=== PATIENT | male | born 1955 | race Caucasian/White ===

== ENCOUNTER → 2019-06-24 16:06 | Outpatient (BNVA) | payer OTHER, SELFPAY | PROVIDERS: Family Provider Family Medicine; Referring Provider Internal Medicine; Visit Provider Specialist | DX: M25.511 Pain in right shoulder (principal) | CPT/HCPCS: 73030 ==

== ENCOUNTER 2020-09-05 21:45 | Emergency (ER) | payer OTHER, SELFPAY ==
--- NOTE | 2020-09-05 21:45 | XRR_ITS ---
PROCEDURE INFORMATION: Exam: XR Chest Exam date and time: 09/05/2020 9:46 PM Age: 64 years old Clinical indication: Pain; Chest pressure; Additional info: Cp TECHNIQUE: Imaging protocol: XR of the chest. Views: 1 view. COMPARISON: CT chest w con* [id number] 03/27/2019 9:54 AM FINDINGS: Lungs: Unremarkable. No consolidation. Pleural spaces: Unremarkable. No pleural effusion. No pneumothorax. Heart/Mediastinum: Unremarkable. No cardiomegaly. Bones/joints: Unremarkable. XR/XR chest 1V portable [id number] IMPRESSION: No acute disease.
--- NOTE | 2020-09-05 21:46 | ECG_ITS ---
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 Measurements Intervals [place] Rate: 69 P: 38 TX: 152 QRS: 17 QRSD: 96 T: 53 QT: 377 QTc: 404 Interpretive Statements SINUS RHYTHM POSSIBLE RIGHT VENTRICULAR CONDUCTION DELAY [RSR (QR) IN V1/V2] Compared to ECG 01/16/2019 21:12:50 No significant changes Electronically Signed On 09-06-2020 15:33:51 CDT by Ventura De Anda M.D. [email or web address].The Mother Listmonroe regional hospitaltripJaneselect [facility].[employer]/store/NU/[id number] f
--- NOTE | 2020-09-05 21:50 | W.ED.CHESTPA ---
HPI - Chest Pain General: Chief Complaint: Chest Pain Stated Complaint: CP Time Seen by Provider: 09/05/20 21:45 Source: patient and EMS Mode of arrival: EMS Limitations: no limitations History of Present Illness: HPI narrative: 64-year-old male states he was outside working started having a sharp chest pain in the center of his chest. He states it started suddenly and lasted 1 to 2 minutes. He states he then went inside and had 2 more episodes. Patient since the pain is resolved. He is given aspirin in route. He denies any radiation of his pain. Denies any nausea with the pain. He denies any worsening improving factors. He has no history of coronary artery disease. Associated symptoms: Deny abdominal pain, dyspnea, fever(s), nausea or vomiting Review of Systems Const: Denies: fever(s), chills, body aches or change in appetite Eyes: Denies: blurry vision or eye discomfort ENMT: Denies: throat pain or dental pain Card: Reports: chest pain Resp: Denies: dyspnea GI: Denies: abdominal pain, nausea, vomiting or diarrhea : Denies: dysuria Musc: Denies: neck pain or back pain Skin/Breast: Denies: rash Neuro: Denies: headache(s) Psych: Denies: depression Jason/Lymph: Denies: easy bruising All/Imm: Denies: urticaria PFSH ED PFSH: Social History Smoking and tobacco status: former smoker Alcohol intake: never Physical Exam Const: COMMON NORMALS: no acute distress, patient oriented x3 and healthy appearing HENMT: COMMON NORMALS: normocephalic and atraumatic HEAD & SCALP: normocephalic and atraumatic Eye: COMMON NORMALS: Equal, round and reactive pupils present and EOMs intact bilaterally PUPIL: Yes Equal, round and reactive pupils present Neck/C-Spine: COMMON NORMALS: full ROM and supple Chest: COMMONS NORMALS: normal inspection of the chest and normal palpation of entire chest wall Resp: COMMON NORMALS: normal respiratory effort, No retractions, No use of accessory muscles and clear to auscultation bilaterally AUSCULTATION: clear to auscultation bilaterally Cardio: COMMON NORMALS: regular rate, regular rhythm and No murmurs present (Cardio) RATE: regular rate RHYTHM: regular rhythm GI: COMMON NORMALS: Normal to inspection, nondistended, normoactive bowel sounds present, Soft to palpation, non-tender and no masses PALPATION: Yes Soft to palpation Extremity: COMMON NORMALS: normal to inspection and full ROM Neuro: COMMON NORMALS: patient oriented x3, moves all extremities and no focal motor deficits Psych: COMMON NORMALS: mental status grossly normal, Normal thought process present and cooperative THOUGHT PROCESS: Normal thought process present Skin: COMMON NORMALS: no rashes or lesions noted and no wounds GENERAL SKIN EXAM: no rashes or lesions noted Course Vital Signs: Vital signs: Vital Signs Temperature 98.4 F 09/05/20 21:57 Pulse Rate 65 09/06/20 00:41 Respiratory Rate 18 09/06/20 00:41 Blood Pressure 114/60 09/06/20 00:41 Pulse Oximetry 96 09/06/20 00:41 MDM - Chest Pain MDM Narrative: Medical decision making narrative: Patient presents with chest pain is atypical in nature. His initial and repeat troponins are negative along with his EKG. He feels much improved and is wanting to go home. I feel he is stable for discharge. He is to follow-up his PCP in 2 to 4 days and I recommend an outpatient stress test. He is return if he has any more pain. He understands and agrees to plan. Lab Data: Labs: Lab Results 09/05/20 09/05/20 09/05/20 Range/Units 22:21 22:21 22:21 WBC 7.5 (4.0-10.0) 10^3/ uL RBC 4.49 (4.1-5.3) 10^6/u L Hgb 13.1 (11.7-16.6) g/dL Hct 40.0 L (42.0-52.0) % MCV 89.1 (80-94) fL MCH 29.2 (28.0-34.0) pg MCHC 32.8 (30.0-36.0) g/dL RDW 12.4 (12.1-15.1) % Plt Count 340 (130-400) 10^3/c mm MPV 9.3 (7.4-10.4) fL Neut % (Auto) 52.5 % Lymph % (Auto) 31.0 % [place] % (Auto) 6.8 % Eos % (Auto) 8.4 % Baso % (Auto) 0.9 % Neut # (Auto) 3.96 (1.8-7.7) 10^3/u L Lymph # (Auto) 2.3 (0.8-4.8) 10^3/u L [place] # (Auto) 0.5 (0.2-0.9) 10^3/u L Eos # (Auto) 0.6 (0.0-0.8) 10^3/u L Baso # (Auto) 0.1 (0.0-0.1) 10^3/u L Nucleated RBC % (a uto) 0 % Nucleated RBCs # 0.0 /100WBC Sodium 141 (136-145) mmol/L Potassium 4.8 (3.5-5.1) mmol/L Chloride 107 (98-107) mmol/L Carbon Dioxide 23 (22-29) mmol/L Anion Gap 15.8 (5-19) BUN 13 (8-23) mg/dL Creatinine 1.2 (0.7-1.2) mg/dL GFR Calculation 60.8 L (90-130) mL/min Glucose 166 H (65-115) mg/dL Calculated Osmolal ity 296 H (285-295) mOsm/k g Calcium 9.1 (8.5-10.5) mg/dL Total Bilirubin 0.2 (0.15-1.2) mg/dL AST 22 (0-40) U/L ALT 22 (0-41) U/L Alkaline Phosphata se 54 (40-130) IU/L Troponin T Baselin e 7 (0-15) ng/L Troponin T 120 Min pamunkey (0-15) ng/L Delta Troponin T (0-10) ABS# Total Protein 6.8 (6.6-8.7) g/dL Albumin 4.0 (3.5-5.2) g/dL Globulin 2.8 (1.3-4.6) g/dL 09/06/20 Range/Units 00:25 WBC (4.0-10.0) 10^3/ uL RBC (4.1-5.3) 10^6/u L Hgb (11.7-16.6) g/dL Hct (42.0-52.0) % MCV (80-94) fL MCH (28.0-34.0) pg MCHC (30.0-36.0) g/dL RDW (12.1-15.1) % Plt Count (130-400) 10^3/c mm MPV (7.4-10.4) fL Neut % (Auto) % Lymph % (Auto) % [place] % (Auto) % Eos % (Auto) % Baso % (Auto) % Neut # (Auto) (1.8-7.7) 10^3/u L Lymph # (Auto) (0.8-4.8) 10^3/u L [place] # (Auto) (0.2-0.9) 10^3/u L Eos # (Auto) (0.0-0.8) 10^3/u L Baso # (Auto) (0.0-0.1) 10^3/u L Nucleated RBC % (a uto) % Nucleated RBCs # /100WBC Sodium (136-145) mmol/L Potassium (3.5-5.1) mmol/L Chloride (98-107) mmol/L Carbon Dioxide (22-29) mmol/L Anion Gap (5-19) BUN (8-23) mg/dL Creatinine (0.7-1.2) mg/dL GFR Calculation (90-130) mL/min Glucose (65-115) mg/dL Calculated Osmolal ity (285-295) mOsm/k g Calcium (8.5-10.5) mg/dL Total Bilirubin (0.15-1.2) mg/dL AST (0-40) U/L ALT (0-41) U/L Alkaline Phosphata se (40-130) IU/L Troponin T Baselin e (0-15) ng/L Troponin T 120 Min pamunkey 8.02 (0-15) ng/L Delta Troponin T 1.02 (0-10) ABS# Total Protein (6.6-8.7) g/dL Albumin (3.5-5.2) g/dL Globulin (1.3-4.6) g/dL Imaging Data^: CXR: Attestation: I personally reviewed and interpreted this imaging study as follows: My impression: no acute abnormality EKG Data^: EKG 1: Attestation: I personally reviewed and interpreted this EKG as follows: EKG interpretation date: 09/05/20 EKG interpretation time: 21:56 Interpretation: nsr hr [address] or t wave abnormalities qrs 96 qtc 395 EKG 2: Attestation: I personally reviewed and interpreted this EKG as follows: EKG interpretation date: 09/05/20 EKG interpretation time: 23:25 Interpretation: nsr hr [address] or t wave abnormalities qrs 97 qtc 392 Discharge Plan Discharge Patient Disposition: Home Clinical Impression: Chest pain Qualifiers: Chest pain type: unspecified Qualified Code(s): R07.9 - Chest pain, unspecified Condition: Stable Prescriptions: No Action glipizide 5 mg tablet 5 mg PO DAILY RF: 0 metformin 500 mg tablet 500 mg PO DAILY RF: 0 losartan 50 mg tablet 50 mg PO DAILY RF: 0 Discharge Orders: Discharge ED (Routine); Ordered 09/06/20 Ordered By: Jesus Mathew Discharge Diet: Advance as tolerated Discharge Activity: Resume usual activity Patient Instructions: Chest Pain (ED) Coding Level of Care Code ED Snout Puller for Chg Fwd Exam Comprehensive
[2020-09-05 21:57] VITALS: BP 105/54; PULSE 65; RESP 16; TEMP 36.9; O2SAT 97; BMI 33.9
[2020-09-05 22:09] VITALS: BP 127/63; PULSE 65; RESP 16; O2SAT 97
[2020-09-05 22:24] LABS: Basophils # 0.1 10^3/uL (0.0-0.1); Basophils % 0.9 %; Eosinophils # 0.6 10^3/uL (0.0-0.8); Eosinophils % 8.4 %; Hemoglobin 13.1 g/dL (11.7-16.6); Lymphocytes # 2.3 10^3/uL (0.8-4.8); Mean Corpuscular HGB Conc 32.8 g/dL (30.0-36.0); Mean Corpuscular Hemoglobin 29.2 pg (28.0-34.0); Mean Corpuscular Volume 89.1 fL (80-94); Mean Platelet Volume 9.3 fL (7.4-10.4); Monocytes # 0.5 10^3/uL (0.2-0.9); Monocytes % 6.8 %; Neutrophils # 3.96 10^3/uL (1.8-7.7); Neutrophils % 52.5 %; Nucleated Red Blood Cells % 0 %; Platelet Count 340 10^3/cmm (130-400); Red Blood Count 4.49 10^6/uL (4.1-5.3); Red Cell Distribution Width 12.4 % (12.1-15.1); White Blood Count 7.5 10^3/uL (4.0-10.0)
[2020-09-05 22:48] LABS: Alanine Aminotransferase 22 U/L (0-41); Alkaline Phosphatase 54 IU/L (40-130); Blood Urea Nitrogen 13 mg/dL (8-23); Calcium 9.1 mg/dL (8.5-10.5); Carbon Dioxide 23 mmol/L (22-29); Chloride 107 mmol/L (98-107); Globulin 2.8 g/dL (1.3-4.6); Glomerular Filtration Rate 60.8 mL/min (90-130); Glucose 166 mg/dL (65-115); Osmolality Calculated 296 mOsm/kg (285-295); Sodium 141 mmol/L (136-145); Total Bilirubin 0.2 mg/dL (0.15-1.2); Total Protein 6.8 g/dL (6.6-8.7)
[2020-09-05 23:00] LABS: Anion Gap 15.8 (5-19); Aspartate Amino Transferase 22 U/L (0-40); Potassium 4.8 mmol/L (3.5-5.1)
--- NOTE | 2020-09-05 23:05 | PC.NURSE ---
patient report received from DANIAL Keys and care transferred to DANIAL Serrano
[2020-09-05 23:26] VITALS: BP 99/69; PULSE 66; RESP 15; O2SAT 97
[2020-09-05 23:28] LABS: Troponin(5th) Baseline 7 ng/L (0-15)
--- NOTE | 2020-09-05 23:46 | ECG_ITS ---
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 Measurements Intervals [place] Rate: 60 P: 45 [place]: 156 QRS: 18 QRSD: 97 T: 56 QT: 391 QTc: 393 Interpretive Statements SINUS RHYTHM POSSIBLE RIGHT VENTRICULAR CONDUCTION DELAY [RSR (QR) IN V1/V2] Compared to ECG 09/05/2020 21:56:23 No significant changes Electronically Signed On 09-06-2020 15:36:38 CDT by Ventura De Anda M.D. [id number] f
[2020-09-06 00:41] VITALS: BP 114/60; PULSE 65; RESP 18; O2SAT 96
[2020-09-06 00:49] LABS: Troponin 5 2HR 8.02 ng/L (0-15); Troponin 5 2HR Delta 1.02 ABS# (0-10)
[2020-09-06 01:28] VITALS: PULSE 63; RESP 18; O2SAT 97
== END 2020-09-06 01:32 | disposition home or self-care (01) ==
PROVIDERS: Emergency Provider Emergency Medicine
DX: R07.9 Chest pain, unspecified (principal); Z79.84 Long term (current) use of oral hypoglycemic drugs; Z87.891 Personal history of nicotine dependence
CPT/HCPCS: 71045; 80053; 84484; 85025; 93005; 99284

== ENCOUNTER → 2020-09-07 08:35 | Outpatient (BNVA) | payer OTHER, SELFPAY | PROVIDERS: Referring Provider Family Medicine; Visit Provider Specialist | DX: G56.01 Carpal tunnel syndrome, right upper limb (principal) | CPT/HCPCS: 73110 ==

== ENCOUNTER 2020-09-13 12:36 | Emergency (ER) | payer OTHER, SELFPAY ==
[2020-09-13 12:45] VITALS: BP 169/80; PULSE 62; RESP 17; TEMP 36.2; O2SAT 97; BMI 33.9
--- NOTE | 2020-09-13 13:04 | ED_ITS ---
HPI - Skin/Abscess/Foreign Bdy General: Chief complaint: Skin/Abscess/Foreign Body Stated complaint: POISON JESSICA Time Seen by Provider: 09/13/20 12:46 History of Present Illness: HPI narrative: Patient is a 64-year-old male comes to the ED with pruritic rash. Patient says he came in contact with poison jessica approximately 2 days ago and pruritic rash started then. Rash is located on both right and left upper and lower extremities and face. Denies any fever, chills, shortness of breath trouble breathing, nausea/vomiting. Associated symptoms: Deny chills, fever(s), nausea or vomiting Review of Systems Const: Denies: fever(s), chills or fatigue Eyes: Denies: change in vision or eye discomfort ENMT: Denies: throat pain, odynophagia, nasal discharge or nasal congestion Card: Denies: chest pain, palpitations, edema, swelling of feet/ankles, dyspnea on exertion or orthopnea Resp: Denies: dyspnea, productive cough or non-productive cough GI: Denies: abdominal pain, nausea, vomiting, diarrhea, constipation or hematochezia : Denies: flank pain, difficulty urinating, dysuria or hematuria Musc: Denies: neck pain, back pain or extremity swelling Skin/Breast: Reports: rash and pruritus; Denies: new lesions Neuro: Denies: headache(s), numbness in extremities or weakness in extremities PFSH ED PFSH: Social History Smoking and tobacco status: former smoker Alcohol intake: never Physical Exam Const: COMMON NORMALS: no acute distress, patient oriented x3 and alert HENMT: COMMON NORMALS: normocephalic HEAD & SCALP: normocephalic MOUTH: Normal oral and palatal mucosa present THROAT: posterior oropharynx normal and uvula midline Neck/C-Spine: COMMON NORMALS: supple GENERAL: Yes normal visual inspection Resp: COMMON NORMALS: normal respiratory effort, No retractions, No use of accessory muscles and clear to auscultation bilaterally AUSCULTATION: clear to auscultation bilaterally Cardio: COMMON NORMALS: regular rate, regular rhythm, S1 normal heart sound present, S2 normal heart sound present, No gallops present (Cardio), No clicks present (Cardio), No murmurs present (Cardio) and Peripheral pulses 2+ throughout RATE: regular rate RHYTHM: regular rhythm HEART SOUNDS: S1 normal heart sound present and S2 normal heart sound present PERIPHERAL PULSES: Peripheral pulses 2+ throughout GI: COMMON NORMALS: Normal to inspection, nondistended, normoactive bowel sounds present, Soft to palpation, non-tender and no masses PALPATION: Yes Soft to palpation : COMMON NORMALS: Yes no CVA tenderness BLADDER/KIDNEY EXAM: Yes no CVA tenderness Back/Pelvis: COMMON NORMALS: no CVA tenderness Extremity: COMMON NORMALS: normal to inspection Neuro: COMMON NORMALS: patient oriented x3 and moves all extremities SENSORIUM/ORIENTATION: Yes alert Skin: NARRATIVE SKIN EXAM: Patient has multiple spots of raised linear pruritic rash throughout right and left upper and lower extremities. He also has rash on left maxillary region of face. Rash findings suggestive of poison jessica. GENERAL SKIN EXAM: dry skin Course Vital Signs: Vital signs: Vital Signs Temperature 97.1 F L 09/13/20 12:45 Pulse Rate 84 09/13/20 13:31 Respiratory Rate 18 09/13/20 13:31 Blood Pressure 140/84 09/13/20 13:31 Pulse Oximetry 98 09/13/20 13:31 MDM - Skin/Abscess/Foreign Bdy MDM Narrative: Medical decision making narrative: Patient is a 64-year-old male comes to the ED with poison jessica rash on both right and left upper and lower extremities and face. Patient was given dose of IM Kenalog 40. He was discharged home and also given a prescription of Medrol Dosepak and he was told to take that as needed if rash is not improving after a week. Return to ED precautions given. Follow-up with PCP 7 to 10 days for reevaluation. Patient understood agree with plan. Discharge Plan Discharge Patient Disposition: Home Clinical Impression: Allergic dermatitis due to poison jessica Condition: Stable Prescriptions: New methylprednisolone 4 mg tablets,dose pack See Rx Instructions .ROUTE .COMPLEX Qty: 21 RF: 0 No Action glipizide 5 mg tablet 5 mg PO DAILY RF: 0 metformin 500 mg tablet 500 mg PO DAILY RF: 0 losartan 50 mg tablet 50 mg PO DAILY RF: 0 Discharge Orders: Discharge ED (Routine); Ordered 09/13/20 Ordered By: Ziyad Chilel Referrals: Celine Trammell MD [Primary Care Provider] - Discharge Diet: Regular Discharge Activity: Resume usual activity Patient Instructions: Poison Jessica (ED) Activity Restrictions/Additional Instructions: Follow-up with medical provider as directed in 7 to 10 days for reevaluation. If after a week you are not seeing much improvement of rash you can fill the oral steroid prescription and start taking. Take medications as prescribed. Return to the ER or your medical provider if condition worsens. Please read and understand discharge instructions. Thank you for choosing [facility] for your healthcare needs today. Please realize this is an emergency room and that we are providing you with a medical screening exam and this may not be complete and all inclusive of all the testing and or work up that you may need to determine your ailment or severity of your illness. It is very important that you follow up as instructed or that you return to the Emergency Department should you have concerns or if your condition changes or worsens in any way. Coding Level of Care Code ED Sealer Operator for Fili Dorsey Exam Comprehensive
[2020-09-13] MEDS: triamcinolone 40 mg/mL SDV IM ×2 (13:29→13:31)
[2020-09-13 13:31] VITALS: BP 140/84; PULSE 84; RESP 18; O2SAT 98
== END 2020-09-13 13:32 | disposition home or self-care (01) ==
PROVIDERS: Emergency Provider Physician Assistant; PCP Family Medicine
DX: L23.7 Allergic contact dermatitis due to plants, except food (principal); Z79.84 Long term (current) use of oral hypoglycemic drugs; Z87.891 Personal history of nicotine dependence
CPT/HCPCS: 96372; 99283; J3301

== ENCOUNTER → 2020-10-07 11:28 | Outpatient (BNVA) | payer OTHER, SELFPAY | PROVIDERS: PCP Family Medicine; Referring Provider Family Medicine; Visit Provider Specialist | DX: G56.01 Carpal tunnel syndrome, right upper limb (principal); M19.011 Primary osteoarthritis, right shoulder | CPT/HCPCS: 73030 ==

== ENCOUNTER → 2020-11-04 07:55 | Outpatient (BNVA) | payer OTHER, SELFPAY | PROVIDERS: PCP Family Medicine; Referring Provider Specialist; Visit Provider Specialist | DX: G56.01 Carpal tunnel syndrome, right upper limb (principal) | CPT/HCPCS: 95908 ==

== ENCOUNTER 2020-11-27 07:42 | Outpatient (CLI) | payer OTHER, SELFPAY ==
[2020-11-27 08:12] VITALS: BMI 32.9
--- NOTE | 2020-11-27 08:13 | ECG_ITS ---
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 Interpretive Statements NAME OF STUDY: LEXISCAN SESTAMIBI STRESS TEST INDICATION: [Chest Pain, ] Procedure: At the baseline, the blood pressure was 165/89 mmHg with a heart rate of 47 bpm. The electrocardiogram showed sinus bradycardia, normal axis with normal ST and T's. The Lexiscan was infused over a period of 20 seconds. A total of 0.4 mg of Lexiscan was infused. The stress phase was continued for a total of 5 minutes. Heart rate was at the end of stress phase was 69 bpm and a blood pressure of 169/84mmHg. The EKG at the peak infusion revealed since normal sinus rhythm with no significant ST-T wave changes. Sestamibi was injected 20 seconds after the Lexiscan infusion. Blood pressure at the end of recovery phase was 169/87 mmHg with a heart rate of 64 bpm. Conclusion: 1. Normal EKG response to Lexiscan infusion 2. No Lexiscan induced chest pain or cardiac arrhythmia. 3. Normal blood pressure and heart rate response. 4. Sestamibi/sestamibi perfusion scan pending; see separate report. Electronically Signed On 12-27-2020 12:38:07 CDT by Ventura De Anda M.D. [id number]
--- NOTE | 2020-11-27 08:13 | NMCV_ITS ---
NM laly perf SPECT r/s* [id number] Tammy Montana Age: 65 Gender: M : 1955 Exam Date: 11/27/2020 08:13 Ordering Phys: Ventura De Anda M.D ([email or web address]) Technologist: KM Jones Exam Location: [facility] Indications: CHEST PAIN STRESS TEST Please see separate stress test report in [facility] for full findings IMAGE PROTOCOL Rest/Stress 1 Lexiscan Day Radiopharmaceutical Dose (mCi) Administration Site Administered by Rest: Tc-99m 10.8 IV KM Jones Sestamibi Stress:Tc-99m 32.7 IV KM Charlton Sestamibi Rest: 27-Nov-2020 60 Discovery 630 Stress: 27-Nov-2020 30 Discovery 630 0.4mg Lexiscan. Images obtained in supine and prone position. SPECT RESULTS Technical Quality: Excellent Raw Data Analysis: Normal Image Corrections: No attenuation or motion correction applied Summed Stress Score: 0 Summed Rest Score: 0 Summed Difference Score: 0 PERFUSION FINDINGS SPECT images demonstrate homogeneous tracer distribution throughout the myocardium. FUNCTIONAL RESULTS (calculated via Gated SPECT) Stress Image LV EF (%): 56 Stress EDV (mL):110 TID: 0.87 Stress ESV (mL):48 FUNCTIONAL FINDINGS: There is normal left ventricular systolic function. IMPRESSIONS 1. Normal myocardial perfusion imaging with no evidence of ischemia. 2. LV systolic function is normal Ventura De Anda MD (Electronically Signed) Final Date: 30 November 2020 10:58 S
[2020-11-27] MEDS: regadenoson 0.4 Mg/5 ml Syringe IVP (10:19)
[2020-11-27 10:23] VITALS: BP 169/87; PULSE 64
--- NOTE | 2020-11-27 12:00 | USCV_ITS ---
Tammy Montana Age: 65 Gender: M : 1955 Exam Date: 11/27/2020 08:28 Ordering Phys: Ventura De nAda M.D ([email or web address]) Technologist: Brenda Garcia Exam Location[place] [facility] Indication: CHEST PAIN BP: 131 / 73 HR: 53 Rhythm: Sinus Technical Quality: Adequate MEASUREMENTS (Male / Female) Normal Values 2D ECHO LV Diastolic Diameter PLAX 4.6 cm 4.2 - 5.9 / 3.9 - 5.3 cm LV Systolic Diameter PLAX 3.0 cm IVS Diastolic Thickness 1.1 cm 0.6 - 1.0 / 0.6 - 0.9 cm IVS Systolic Thickness 1.6 cm LVPW Diastolic Thickness 1.1 cm 0.6 - 1.0 / 0.6 - 0.9 cm LVPW Systolic Thickness 1.7 cm LVOT Diameter 2.0 cm LV Ejection Fraction 2D Teich 64.2 % LV Ejection Fraction MOD 2C 79.9 % LV Ejection Fraction 2C AL 81.7 % LA Diameter 3.8 cm LA Width 3.6 cm LA Height 4.7 cm RA Width 3.3 cm RA Height 4.0 cm Aorta at Sinotubular Diameter 2.8 cm DOPPLER AV Peak Velocity 105.0 cm/s LVOT Peak Velocity 106.0 cm/s AV Area Cont Eq vti 3.3 cm squared AV Area Cont Eq pk 3.3 cm squared MV Peak Velocity 80.0 cm/s MV Area PHT 3.3 cm squared Mitral E to A Ratio 1.1 MV E' Velocity 44.5 cm/s Mitral E to MV E' Ratio 7.8 Mitral E to LV E' Lateral Ratio 5.9 Mitral E to LV E' Septal Ratio 11.6 TR Peak Velocity 68.0 cm/s TR Peak Gradient 1.8 mmHg Right Atrial Pressure 3.0 mmHg Pulmonary Artery Systolic Pressu 4.8 mmHg PV Peak Velocity 58.0 cm/s RV Acceleration Time 0.1 s RV Ejection Time 0.3 s RV AcT/ET 0.4 FINDINGS Left Ventricle Normal left ventricular size. LV systolic function is normal with EF of 55-60%. No regional wall motion abnormalities. Normal diastolic filling pattern. Right Ventricle The right ventricle is normal in size and function. Right Atrium The right atrium is normal in size. Left Atrium The left atrium is normal in size. Mitral Valve Structurally normal mitral valve without significant stenosis or prolapse. There is mild mitral regurgitation. Aortic Valve Structurally normal aortic valve without significant sclerosis or stenosis. There is no aortic regurgitation. Tricuspid Valve Structurally normal tricuspid valve without significant stenosis or regurgitation. Insufficient TR jet to calculate RVSP Pulmonic Valve Structurally normal pulmonic valve without significant stenosis. There is no pulmonic regurgitation. Pericardium Normal pericardium without effusion. Aorta Normal ascending aorta dimension. CONCLUSIONS LV systolic function is normal with EF of 55-60% Normal diastolic dsysfunction Mild mitral regurgitation No comparison studies are available Ventura De Anda MD (Electronically Signed) Final Date: 30 November 2020 16:31 S
== END 2020-11-27 07:43 | disposition home or self-care (01) ==
LOC: RAD 07:47 → CDL 08:03
PROVIDERS: PCP Family Medicine; Visit Provider Internal Medicine
DX: R07.9 Chest pain, unspecified (principal); I34.0 Nonrheumatic mitral (valve) insufficiency
CPT/HCPCS: 78452; 93017; 93306; A9500; J2785

== ENCOUNTER → 2021-03-01 08:15 | Outpatient (BNVA) | payer OTHER, SELFPAY | PROVIDERS: PCP Family Medicine; Visit Provider Specialist | DX: Z20.822 Contact with and (suspected) exposure to COVID-19 (principal); G56.01 Carpal tunnel syndrome, right upper limb | CPT/HCPCS: 73110; 87635 ==

== ENCOUNTER 2021-03-04 09:55 | Day surgery (SDC) | payer OTHER, SELFPAY ==
[2021-03-04] VITALS (7 sets, daily range): BP systolic 156–175; BP diastolic 91–98; PULSE 45–60; RESP 16–27; TEMP 36.1–36.5; O2SAT 98–100; BMI 34.0
[2021-03-04 10:28] LABS: Add Urine Microscopic? NO; Charge for UA Resulting for Rev
[2021-03-04 10:45] LABS: Glucose Point of Care 80 mg/dL (70-110)
[2021-03-04] MEDS: sodium chloride 0.9% 1,000 ML 30 ML IV (10:47)
[2021-03-04] MEDS: acetaminophen 1,000 MG/100 ML PIGGYBACK 400 MG IV (10:48)
[2021-03-04] MEDS: CELEcoxib 200 mg Capsule 400 MG PO (10:49)
--- NOTE | 2021-03-04 11:04 | ANES.PREANE2 ---
Pre-Anesthetic Assessment Pre-Anesthetic Assessment: Height/Weight: Height 1.68 m Weight 95.708 kg Temp Pulse Resp BP Pulse Ox 97.7 F 50 L 16 171/98 98 03/04/21 10:06 03/04/21 10:06 03/04/21 10:06 03/04/21 10:06 03/04/21 10:06 Preop Diagnosis: Right carpal tunnel syndrome Proposed Procedure: Operation Date: 03/04/21 11:30 Proposed Procedures p Carpal Tunnel Release 34217 G56.00(Right) - Faith Weeks MD Was Beta Mariia taken within 24 hours: N/A Was Clonidine taken within 24 hours: N/A Last intake: Intake Last Liquid Date 03/04/21 Last Liquid Time 06:30 Last Solid Date 03/03/21 Last Solid Time 23:00 Social: Social History: No alcohol and No tobacco Exam: Pre-Anes Outpt Exam: alert, oriented x 3, clear to auscultation bilaterally and regular rate & rhythm Airway: Submandibular: WNL Cervical ROM: WNL MP: 2 Dentition: False CV/HEM: CV/HEM: HTN and Murmur (MR) Metabolic: Metabolic: DM, Hyperlipidemia and Morbid obesity Musc/skel: Musc/skel: OA/DJD Anesthetic Plan: ASA status: 3 Anesthesia: MAC and Regional (specify below) (Shravan sahu) Risk of > 500 ml blood loss (7ml/kg in children): No Meds/Allergies Current Medications: Current Medications Generic Name Dose Route Start Last Admin Trade Name Freq PRN Reason Stop Dose Admin Sodium Chloride 1,000 mls @ 30 ml s/hr 03/04/21 10:00 03/04/21 10:47 Sodium Chloride 0.9% IV 03/05/21 09:59 30 mls/hr .Q24H NANY Administration PFSH Anesthesia PFSH: Medical History Epilepsy History of high blood pressure Type 2 diabetes mellitus Surgical History H/O removal of cyst S/P rotator cuff repair Family History Father Family history of premature coronary artery disease Social History Alcohol intake: never Data Anesthesia Other Labs: Laboratory Results - last 48 hr 03/04/21 10:42 POC Glucose 80 Cardiac Studies: Echocardiogram 11/27/20
[2021-03-04 11:07] LABS: Bilirubin Urine Neg (Negative); Blood Urine Neg (Negative); Glucose Urine UA Trace (Normal); Ketones Urine Negative (Negative); Leukocyte Esterase Urine Negative (Negative); Nitrate Urine Negative (Negative); Protein Urine Neg (Negative); Urine Appearance Clear (CLEAR); Urine Color Yellow (Yellow); Urobilinogen Urine 1 mg/dL (Negative); pH Urine 5 (5-7)
[2021-03-04 11:24] LABS: Basophils # 0.1 10^3/uL (0.0-0.1); Basophils % 1.6 %; Eosinophils # 0.6 10^3/uL (0.0-0.8); Eosinophils % 7.9 %; Hematocrit 40.5 % (42.0-52.0); Hemoglobin 13.1 g/dL (11.7-16.6); Lymphocytes # 2.6 10^3/uL (0.8-4.8); Lymphocytes % 36.7 %; Mean Corpuscular HGB Conc 32.3 g/dL (30.0-36.0); Mean Corpuscular Hemoglobin 29.2 pg (28.0-34.0); Mean Corpuscular Volume 90.4 fl (80-94); Mean Platelet Volume 9.5 fL (7.4-10.4); Monocytes # 0.6 10^3/uL (0.2-0.9); Monocytes % 8.9 %; Neutrophils # 3.14 10^3/uL (1.8-7.7); Neutrophils % 44.8 %; Nucleated Red Blood Cells % 0 %; Platelet Count 400 10^3/cmm (130-400); Red Blood Count 4.48 10^6/uL (4.1-5.3); Red Cell Distribution Width 12.2 % (12.1-15.1)
[2021-03-04 11:45] LABS: Alanine Aminotransferase 19 U/L (0-41); Albumin Level 4.1 g/dL (3.5-5.2); Alkaline Phosphatase 62 IU/L (40-130); Anion Gap 13.7 (5-19); Aspartate Amino Transferase 15 U/L (0-40); Blood Urea Nitrogen 14 mg/dL (8-23); Carbon Dioxide 26 mmol/L (22-29); Chloride 104 mmol/L (98-107); Globulin 2.6 g/dL (1.3-4.6); Glomerular Filtration Rate 74.8 mL/min (90-130); Glucose 82 mg/dL (65-115); Osmolality Calculated 288 mOsm/kg (285-295); Potassium 4.7 mmol/L (3.5-5.1); Sodium 139 mmol/L (136-145); Total Bilirubin 0.2 mg/dL (0.15-1.2); Total Protein 6.7 g/dL (6.6-8.7)
--- NOTE | 2021-03-04 11:59 | W.PM.OPSUD ---
Surgery/Procedure H&P Update DATE OF PROCEDURE: March 04, 2021 DATE H&P PERFORMED: 03/01/21 H&P UPDATE INFORMATION: I have reviewed H&P completed within last 30 days, I have examined patient prior to procedure, No changes to prior documentation and H&P is in [facility] EMR on date indicated PREOP DIAGNOSIS: Right carpal tunnel syndrome PLANNED PROCEDURE: Operation Date: 03/04/21 11:30 Proposed Procedures p Carpal Tunnel Release [id number] G56.00(Right) - Faith Weeks MD Related Problem List Diagnoses (1) Carpal tunnel syndrome of right wrist:
--- NOTE | 2021-03-04 13:28 | P.OP_ITS ---
Operative Report Date of procedure: March 04, 2021 Pre-op Diagnosis: Right carpal tunnel syndrome Post-op diagnosis: same Post-op Findings: Significant compression across the median nerve Procedure Done: Right carpal tunnel release Pathology: none sent Surgeon: Faith Weeks Automobile Washer Steam: None Anesthesia: MAC (With Shravan block) Estimated blood loss (mL): 1 Tourniquet time (min): 39 Tourniquet time: At 250 mmHg IV fluids (mL): 800 Urine output (mL): 0 Urine output: No [place] Complications: None Findings: Significant compression across the carpal canal causing hourglass deformity and discoloration of the median nerve Condition: stable Disposition: PACU (Then to same-day surgery for discharge to home) Brief History: This 65-year-old gentleman presented with complete thumb, index, and long fingers of his right hand. Evaluation was consistent with carpal tunnel syndrome, and after discussion, the patient wished to proceed with carpal tunnel release. Risks and complications were discussed. The patient wished to proceed with operative intervention. He therefore was scheduled for the above procedure. Procedure: The patient was brought to the operating theater. The patient had a Shravan block with MAC. The tourniquet was elevated to 250 mmHg for a total tourniquet time of 39 minutes. The patient was also given Ancef 2 g preoperatively. The arm was then prepped and draped with DuraPrep in usual fashion with the arm draped free. A surgical pause was performed. At the time, the surgical pause, we confirmed the site and side of surgery. We also confirmed the patient's identity, appropriate and timely administration of preoperative antibiotics and preoperative surgical markings. An incision was then made along the thenar crease. The incision crossed the wrist joint in a curvilinear fashion. Dissection continued through skin and soft tissues using a scalpel. The palmaris longus was identified along with the transverse carpal ligament. Each of these was released carefully to avoid injury to the median nerve. We were able to dissect gently into the carpal canal which was noted to be quite tight with significant compression across the median nerve. The nerve was visualized and was an hourglass shape. The canal was s ubsequently palpated to assure there was no bony encroachment upon the canal. There was a quite thickened fibrous tissue within the canal, and this was opened longitudinally as well. The canal was then palpated distally and proximally to assure that my small finger was passed easily without impingement. Finding this to be so, attention was directed to closure. The wound was irrigated with ropivacaine plain. It was then closed with 3-0 nylon in an interrupted mattress fashion. Sterile dressing was then placed consisting of Dermabond, OpSite, fluffed fluffs, sterile soft roll, a volar splint, and an Leland wrap. The tourniquet was released after 39 minutes. There were no complications. There were no specimens. The procedure was well tolerated. Plan is the patient will be discharged home. Associated Problem List Diagnoses (1) Carpal tunnel syndrome of right wrist:
--- NOTE | 2021-03-04 13:44 | ANE.PACU2 ---
Inpatient post-anesthesia follow up: Airway intact: Yes Vital signs: Temperature 97.3 F Pulse Rate 55 Respiratory Rate 18 Blood Pressure 163/93 Pulse Oximetry 100 Oxygen Delivery Me thod Room Air Oxygen Flow Rate 8 Fraction of Inspir ed Oxygen Hydration adequate: Yes Nausea and vomiting: No Pain level: 1 Mental status: Baseline
== END 2021-03-04 13:55 | disposition home or self-care (01) ==
PROVIDERS: PCP Family Medicine; Visit Provider Specialist
PROC: (CPT 64721; principal; 2021-03-04 11:30)
DX: R20.0 Anesthesia of skin (principal); E11.9 Type 2 diabetes mellitus without complications; Z79.84 Long term (current) use of oral hypoglycemic drugs; Z88.5 Allergy status to narcotic agent; Z82.49 Family history of ischemic heart disease and other diseases of the circulatory system
CPT/HCPCS: 64721; 36415; 36416; 80053; 81003; 82962; 85025; 96365; J0690; J2250; J2704; J3490; J7030

== ENCOUNTER → 2021-07-30 10:58 | Outpatient (BNVA) | payer OTHER, SELFPAY | PROVIDERS: PCP Family Medicine | DX: I49.9 Cardiac arrhythmia, unspecified (principal); R55 Syncope and collapse | CPT/HCPCS: 93225 ==

== ENCOUNTER → 2021-08-10 14:37 | Outpatient (BNVA) | payer OTHER, SELFPAY | PROVIDERS: PCP Family Medicine; Visit Provider Internal Medicine | DX: R55 Syncope and collapse (principal); Z86.79 Personal history of other diseases of the circulatory system; E11.9 Type 2 diabetes mellitus without complications; Z79.84 Long term (current) use of oral hypoglycemic drugs; I34.0 Nonrheumatic mitral (valve) insufficiency | CPT/HCPCS: 99214 ==

== ENCOUNTER 2021-08-13 06:10 | Outpatient (CLI) | payer OTHER, SELFPAY ==
[2021-08-13 07:03] LABS: Basophils # 0.1 10^3/uL (0.0-0.1); Basophils % 1.2 %; Eosinophils # 0.7 10^3/uL (0.0-0.8); Eosinophils % 10.5 %; Hematocrit 41.1 % (42.0-52.0); Hemoglobin 13.2 g/dL (11.7-16.6); Lymphocytes # 2.5 10^3/uL (0.8-4.8); Lymphocytes % 38.2 %; Mean Corpuscular HGB Conc 32.1 g/dL (30.0-36.0); Mean Corpuscular Volume 90.3 fl (80-94); Mean Platelet Volume 9.7 fL (7.4-10.4); Monocytes # 0.6 10^3/uL (0.2-0.9); Monocytes % 9.3 %; Neutrophils # 2.67 10^3/uL (1.8-7.7); Neutrophils % 40.6 %; Nucleated Red Blood Cells % 0 %; Platelet Count 354 10^3/cmm (130-400); Red Blood Count 4.55 10^6/uL (4.1-5.3); Red Cell Distribution Width 12.8 % (12.1-15.1); White Blood Count 6.6 10^3/uL (4.0-10.0)
[2021-08-13 07:13] LABS: Anion Gap 13.3 (5-19); Blood Urea Nitrogen 15 mg/dL (8-23); Calcium 8.6 mg/dL (8.5-10.5); Carbon Dioxide 24 mmol/L (22-29); Chloride 107 mmol/L (98-107); Glucose 113 mg/dL (65-115); Osmolality Calculated 292 mOsm/kg (285-295); Potassium 4.3 mmol/L (3.5-5.1); Sodium 140 mmol/L (136-145)
[2021-08-13 07:19] LABS: Prothrombin Time (Patient) 12.5 Seconds (12.0-15.1)
== END 2021-08-13 06:11 | disposition home or self-care (01) ==
PROVIDERS: PCP Family Medicine; Visit Provider Internal Medicine
DX: E11.9 Type 2 diabetes mellitus without complications (principal); R55 Syncope and collapse; Z01.812 Encounter for preprocedural laboratory examination
CPT/HCPCS: 36415; 80048; 85025; 85610

== ENCOUNTER 2021-08-19 05:30 | Outpatient (CLI) | payer OTHER, SELFPAY ==
[2021-08-19 06:37] VITALS: BP 155/87; PULSE 60; RESP 16; TEMP 36.7; O2SAT 97; BMI 35.0
[2021-08-19] MEDS: cephALEXin 500 mg Capsule 2000 MG PO (06:37)
--- NOTE | 2021-08-19 07:18 | W.PM.OPSUD ---
Surgery/Procedure H&P Update DATE OF PROCEDURE: August 19, 2021 DATE H&P PERFORMED: 08/10/21 PREOP DIAGNOSIS: Recurrent syncope PRIMARY INDICATION FOR PROCEDURE: Recurrent syncope PLANNED PROCEDURE: Operation Date: 08/19/21 07:00 Proposed Procedures p Loop Recorder Insertion(Left) - Carey Jeffers MD PATIENT REASSESSED PRIOR TO SEDATION, WITH NO CHANGE NOTED: Yes PHYSICAL EXAM: alert, oriented x 3, clear to auscultation bilaterally, regular rate & rhythm and operative site marked
[2021-08-19 08:15] VITALS: BP 147/124; PULSE 64; RESP 16; O2SAT 96
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
== END 2021-08-19 08:20 | disposition home or self-care (01) ==
PROVIDERS: PCP Family Medicine; Visit Provider Internal Medicine Cardiovascular Disease
PROC: (CPT 33285; principal; 2021-08-19 07:00)
DX: R55 Syncope and collapse (principal); I10 Essential (primary) hypertension; E11.9 Type 2 diabetes mellitus without complications; E16.2 Hypoglycemia, unspecified; I34.0 Nonrheumatic mitral (valve) insufficiency
CPT/HCPCS: 33285; C1764; C1769

== ENCOUNTER → 2021-09-07 08:33 | Outpatient (BNVA) | payer OTHER, SELFPAY | PROVIDERS: PCP Family Medicine; Visit Provider Nurse Practitioner Family | DX: Z09 Encounter for follow-up examination after completed treatment for conditions other than malignant neoplasm (principal); Z95.818 Presence of other cardiac implants and grafts | CPT/HCPCS: 99213 ==

== ENCOUNTER → 2022-02-25 10:33 | Outpatient (BNVA) | payer OTHER, SELFPAY | PROVIDERS: PCP Family Medicine; Visit Provider Internal Medicine Cardiovascular Disease | DX: R55 Syncope and collapse (principal); I34.0 Nonrheumatic mitral (valve) insufficiency; R07.9 Chest pain, unspecified; E11.9 Type 2 diabetes mellitus without complications; Z79.84 Long term (current) use of oral hypoglycemic drugs; Z86.79 Personal history of other diseases of the circulatory system | CPT/HCPCS: 99213; 99214 ==

== ENCOUNTER → 2022-08-12 10:27 | Outpatient (BNVA) | payer OTHER, SELFPAY | PROVIDERS: PCP Family Medicine; Visit Provider Specialist | DX: R55 Syncope and collapse (principal); I10 Essential (primary) hypertension | CPT/HCPCS: 99213 ==

== ENCOUNTER → 2022-09-13 11:12 | Outpatient (BNVA) | payer OTHER, SELFPAY | PROVIDERS: PCP Family Medicine; Referring Provider Family Medicine; Visit Provider Specialist | DX: G40.909 Epilepsy, unspecified, not intractable, without status epilepticus (principal); R55 Syncope and collapse | CPT/HCPCS: 99204 ==

== ENCOUNTER → 2022-11-02 15:45 | Outpatient (BNVA) | payer OTHER, SELFPAY | PROVIDERS: PCP Family Medicine; Visit Provider Internal Medicine Cardiovascular Disease | DX: Z45.09 Encounter for adjustment and management of other cardiac device (principal) | CPT/HCPCS: G2066 ==

== ENCOUNTER → 2023-01-04 12:48 | Outpatient (BNVA) | payer OTHER, SELFPAY | PROVIDERS: PCP Family Medicine; Visit Provider Internal Medicine | DX: Z45.09 Encounter for adjustment and management of other cardiac device (principal) | CPT/HCPCS: G2066 ==

== ENCOUNTER → 2023-08-04 16:26 | Outpatient (BNVA) | payer OTHER, SELFPAY | PROVIDERS: PCP Family Medicine; Visit Provider Internal Medicine | DX: Z45.09 Encounter for adjustment and management of other cardiac device (principal) | CPT/HCPCS: 93298 ==

== ENCOUNTER → 2023-09-27 09:46 | Outpatient (BNVA) | payer OTHER, SELFPAY | PROVIDERS: PCP Family Medicine; Visit Provider Internal Medicine | DX: Z45.09 Encounter for adjustment and management of other cardiac device (principal) | CPT/HCPCS: 93298 ==

== ENCOUNTER → 2023-10-06 08:55 | Outpatient (BNVA) | payer OTHER, SELFPAY | PROVIDERS: PCP Family Medicine; Visit Provider Internal Medicine | DX: Z45.018 Encounter for adjustment and management of other part of cardiac pacemaker (principal); Z53.9 Procedure and treatment not carried out, unspecified reason | CPT/HCPCS: 93291 ==

== ENCOUNTER → 2023-11-22 09:15 | Outpatient (BNVA) | payer OTHER, SELFPAY | PROVIDERS: PCP Family Medicine; Visit Provider Internal Medicine | DX: Z45.09 Encounter for adjustment and management of other cardiac device (principal) | CPT/HCPCS: 93298 ==

== ENCOUNTER → 2024-01-24 09:56 | Outpatient (BNVA) | payer OTHER, SELFPAY | PROVIDERS: PCP Family Medicine; Visit Provider Internal Medicine | DX: Z45.09 Encounter for adjustment and management of other cardiac device (principal) | CPT/HCPCS: 93298 ==

== ENCOUNTER → 2024-02-29 10:51 | Outpatient (BNVA) | payer OTHER, SELFPAY | PROVIDERS: PCP Family Medicine; Visit Provider Internal Medicine Cardiovascular Disease | DX: Z45.09 Encounter for adjustment and management of other cardiac device (principal) | CPT/HCPCS: 93298 ==

== ENCOUNTER → 2024-04-24 08:33 | Outpatient (BNVA) | payer OTHER, SELFPAY | PROVIDERS: PCP Family Medicine; Visit Provider Internal Medicine | DX: Z45.09 Encounter for adjustment and management of other cardiac device (principal) | CPT/HCPCS: 93298 ==

== ENCOUNTER 2024-05-06 16:16 | Emergency (ER) | payer OTHER, SELFPAY ==
[2024-05-06 16:17] VITALS: BP 143/75; PULSE 53; RESP 18; TEMP 36.5; O2SAT 99
--- NOTE | 2024-05-06 16:23 | XRR_ITS ---
PROCEDURE INFORMATION: Exam: XR Right Hip Exam date and time: 05/06/2024 4:37 PM Age: 68 years old Clinical indication: Injury or trauma; Fall; Blunt trauma (contusions or hematomas); Right; Hip TECHNIQUE: Imaging protocol: Radiologic exam of the right hip. Views: 1 view hip with pelvis when performed. COMPARISON: CT abdomen pelvis w con* [id number] 09/11/2017 8:13 PM FINDINGS: Bones/joints: No fracture or dislocation is seen about the right hip. No fracture or diastasis is seen about the pelvis. No acute osseous abnormality. Hip joint appears maintained. Soft tissues: No significant soft tissue abnormality. XR/XR hip RT 2-3V wo/w pel* [id number] IMPRESSION: No fracture identified. Follow-up as clinically indicated.
--- NOTE | 2024-05-06 16:35 | PC.PHAR ---
Addendum entered by Jane Hernandez 05/06/24 16:52: Pt went over medications in the room. Pt did not take any of his meds today. Original Note: Pt is [facility] current med list 05/06/24 4:30pm
--- NOTE | 2024-05-06 16:37 | W.ED.FALL ---
HPI - Fall General: Chief Complaint: Fall Stated Complaint: Fall, RT hip pain Time Seen by Provider: 05/06/24 16:22 History of Present Illness: 68-year-old male who presents to the emergency room after a fall. He stumbled and fell after ground-level fall is complaining of right hip pain and neck pain he states he did not strike his head did not lose consciousness no other injuries. He had fallen earlier in the week as well. Associated symptoms-after fall: Denies abdominal pain, chest pain or neck pain Related Data Home Medications Medication Instructions Recorded Confirmed losartan 50 mg tablet 50 mg PO DAILY 06/24/19 05/06/24 cholecalciferol (vitamin D3) 325 1,000 unit PO DAILY 10/20/20 05/06/24 mcg (13,000 unit) capsule (Maximum D3) gabapentin 100 mg capsule 100 mg PO TID 10/20/20 05/06/24 metformin 500 mg tablet 500 mg PO BID 10/20/20 05/06/24 trazodone 50 mg tablet 50 mg PO DAILY 10/20/20 05/06/24 oxybutynin chloride 5 mg tablet 5 mg PO DAILY 08/12/22 05/06/24 glipizide 10 mg tablet 10 mg PO BID 05/06/24 05/06/24 rosuvastatin 40 mg tablet 40 mg PO QPM 05/06/24 05/06/24 Previous Rx's Medication Instructions Recorded diclofenac sodium 75 mg 75 mg PO Q12H PRN pain #20 tabs 05/06/24 tablet,delayed release tizanidine 4 mg tablet 4 mg PO Q6H PRN muscle spasticity 05/06/24 #20 tabs Allergies Allergy/AdvReac Type Severity Reaction Status Date / Time codeine Allergy Mild rash Verified 09/13/22 11:24 Review of Systems Const: Denies: fever(s) or chills Card: Denies: chest pain Resp: Denies: dyspnea GI: Denies: abdominal pain : Denies: dysuria, urinary frequency or urinary urgency Musc: Reports: extremity pain and joint pain; Denies: neck pain or back pain Skin/Breast: Denies: rash PFSH ED PFSH: Medical History Epilepsy History of high blood pressure Type 2 diabetes mellitus Surgical History H/O removal of cyst S/P rotator cuff repair Family History Father Family history of premature coronary artery disease Social History Smoking and tobacco/nicotine status: never used tobacco/nicotine Alcohol intake: never Substance/Drug Use: never Physical Exam Const: COMMON NORMALS: no acute distress GENERAL APPEARANCE: cooperative and comfortable ORIENTATION/CONSCIOUSNESS: Yes awake, Yes oriented to person, Yes oriented to place and Yes oriented to time HENMT: COMMON NORMALS: normocephalic, atraumatic and hearing grossly normal bilaterally HEAD & SCALP: normocephalic and atraumatic Resp: COMMON NORMALS: normal respiratory effort, No retractions, No use of accessory muscles and clear to auscultation bilaterally AUSCULTATION: clear to auscultation bilaterally Cardio: COMMON NORMALS: regular rate, regular rhythm and No murmurs present (Cardio) RATE: regular rate RHYTHM: regular rhythm GI: COMMON NORMALS: Soft to palpation and No hepatosplenomegaly present AUSCULTATION: Yes normoactive bowel sounds PALPATION: Yes Soft to palpation, No Tenderness to palpation present (GI), No Guarding due to palpation present (GI) and Yes No hepatosplenomegaly present Extremity: COMMON NORMALS: normal to inspection, capillary refill normal, no clubbing, cyanosis or edema, no calf tenderness and no pedal edema Neuro: SENSORIUM/ORIENTATION: Yes oriented to person, Yes oriented to place and Yes oriented to time Skin: COMMON NORMALS: no rashes or lesions noted GENERAL SKIN EXAM: no rashes or lesions noted Course Vital Signs: Vital signs: Vital Signs Temperature 97.7 F 05/06/24 16:17 Pulse Rate 56 L 05/06/24 18:25 Respiratory Rate 18 05/06/24 16:17 Blood Pressure 147/85 05/06/24 18:25 Pulse Oximetry 99 05/06/24 18:25 Oxygen Delivery Me thod Room Air 05/06/24 16:17 MDM - Fall Medical Decision Making Unremarkable exam x-rays of the hip and cervical spine CT are negative. Discharge patient home can use tizanidine and diclofenac as needed. Patient was able to ambulate without difficulty in the department. On exam there is no other Medical Records I reviewed the patient's medical records. Lab Data I reviewed the patient's lab results. Radiology Impressions Hip/Pelvis X-Ray 05/06/24 16:23 IMPRESSION: No fracture identified. Follow-up as clinically indicated. Cervical Spine CT 05/06/24 16:40 IMPRESSION: No fracture or subluxation is seen. Cervical spondylosis. All radiology interpretation(s) finalized by discharge Discharge Plan Discharge Patient Disposition: Home Clinical Impression: Neck pain, Acute pain of right hip Condition: Stable Prescriptions: New tizanidine 4 mg tablet 4 mg PO Q6H PRN (Reason: muscle spasticity) Qty: 20 0RF Rx Instructions: do not exceed 3 doses per 24 hrs diclofenac sodium 75 mg tablet,delayed release (DR/EC) 75 mg PO Q12H PRN (Reason: pain) Qty: 20 0RF Discontinued naproxen 500 mg tablet,delayed release (DR/EC) 500 mg PO BID No Action losartan 50 mg tablet 50 mg PO DAILY metformin 500 mg tablet 500 mg PO BID trazodone 50 mg tablet 50 mg PO DAILY gabapentin 100 mg capsule 100 mg PO TID Maximum D3 325 mcg (13,000 unit) capsule 1,000 unit PO DAILY oxybutynin chloride 5 mg tablet 5 mg PO DAILY glipizide 10 mg Tablet 10 mg PO BID rosuvastatin 40 mg Tablet 40 mg PO QPM Discharge Orders: Discharge ED (Routine); Ordered 05/06/24 Ordered By: Zac Flowers Referrals: Celine Trammell MD [Primary Care Provider] - Discharge Diet: Usual diet Discharge Activity: Increase activity as tolerated Patient Instructions: Opioid Safety, Pain Management Activity Restrictions/Additional Instructions: Thank you for choosing [facility] for your healthcare needs today. It is very important that you follow up as instructed or that you return to the Emergency Department should you have concerns or if your condition changes or worsens in any way. You were seen in the emergency room after a fall CT of your neck and x-ray of your hip did not show any acute fractures. Likely you will be very sore the next few days you can use diclofenac or tizanidine as needed. Follow-up with primary care doctor regarding further problems. Coding Level of Care Code ED Correctional Supervising Cook for Fili Dorsey
--- NOTE | 2024-05-06 16:40 | CTR_ITS ---
PROCEDURE INFORMATION: Exam: CT Cervical Spine Without Contrast Exam date and time: 05/06/2024 5:20 PM Age: 68 years old Clinical indication: Injury or trauma; Fall; Blunt trauma; Injury date: 05/06/2024 TECHNIQUE: Imaging protocol: Computed tomography of the cervical spine without contrast. Radiation optimization: All CT scans at this facility use at least one of these dose optimization techniques: automated exposure control; mA and/or kV adjustment per patient size (includes targeted exams where dose is matched to clinical indication); or iterative reconstruction. COMPARISON: CT cervical spine w con [id number] 04/26/2018 10:16 AM RADIATION DOSE METRICS: Total DLP (mGy-cm): 263.32 FINDINGS: Bones: Cervical vertebral body heights appear maintained. Straightening of the cervical curvature mid to upper cervical spine on the sagittal images with prior fusion C3-C4 disc space. Coronal images demonstrate mild levoscoliosis C3-C4 level. Spondylotic change noted involving cervical vertebra and facets. No fracture or subluxation. No significant or severe spinal stenosis. Neural foraminal narrowing see C4-C5 and C5-C6 levels particularly. Lungs: Visualized lung apices appear unremarkable. Soft tissues: No significant soft tissue abnormality. CT/CT cervical spin wo con* [id number] IMPRESSION: No fracture or subluxation is seen. Cervical spondylosis.
[2024-05-06 18:03] VITALS: BP 161/87; PULSE 55; O2SAT 97
[2024-05-06 18:25] VITALS: BP 147/85; PULSE 56; O2SAT 99
== END 2024-05-06 18:31 | disposition home or self-care (01) ==
PROVIDERS: Emergency Provider Family Medicine; PCP Family Medicine
DX: M54.2 Cervicalgia (principal); M25.551 Pain in right hip; Z79.84 Long term (current) use of oral hypoglycemic drugs; E11.9 Type 2 diabetes mellitus without complications
CPT/HCPCS: 72125; 73502; 99284

== ENCOUNTER 2024-10-07 22:42 | Emergency (ER) | payer OTHER, SELFPAY ==
--- NOTE | 2024-10-07 22:53 | ECG_ITS ---
[facility] Test Date: 2024-10-07 Pat Name: Tammy Montana Department: Room: Gender: Male Miter Cutter: : 1955 Requested By: Sean Patel Order Number: [id number] Gong MD: Ventura De Anda M.D. Measurements Intervals [place] Rate: 73 P: 65 NH: 155 QRS: 61 QRSD: 89 T: 78 QT: 374 QTc: 414 Interpretive Statements SINUS RHYTHM Compared to ECG 09/05/2020 23:25:07 No significant changes Electronically Signed On 10-08-2024 17:11:52 CDT by Ventura De Anda M.D. [id number]
[2024-10-07 22:54] VITALS: BP 151/77; PULSE 79; RESP 17; TEMP 37.2; O2SAT 97; BMI 32.3
--- NOTE | 2024-10-07 22:54 | XRR_ITS ---
PROCEDURE INFORMATION: Exam: XR Chest Exam date and time: 10/07/2024 11:01 PM Age: 68 years old Clinical indication: Pain; Chest pressure; Prior surgery; Surgery date: 1-6 months; Surgery type: Loop recorder; Additional info: Chest pain TECHNIQUE: Imaging protocol: Radiologic exam of the chest. Views: 1 view. COMPARISON: CT chest w con* [id number] 03/27/2019 9:54 AM FINDINGS: Lungs: Unremarkable. No consolidation. Pleural spaces: Unremarkable. No pleural effusion. No pneumothorax. Heart/Mediastinum: Cardiomegaly. Bones/joints: Unremarkable. XR/XR chest 1V portable [id number] IMPRESSION: 1. Negative for infiltrate. 2. Cardiomegaly.
[2024-10-07 22:59] LABS: Basophils # 0.1 10^3/uL (0.0-0.1); Basophils % 1.1 %; Eosinophils # 0.7 10^3/uL (0.0-0.8); Eosinophils % 9.2 %; Hematocrit 35.3 % (37-53); Lymphocytes # 2.2 10^3/uL (0.8-4.8); Lymphocytes % 30.6 %; Mean Corpuscular HGB Conc 31.7 g/dL (30-55); Mean Corpuscular Hemoglobin 27.5 pg (27-33); Mean Corpuscular Volume 86.7 fl (82-101); Mean Platelet Volume 9.3 fL (7.4-10.4); Monocytes # 0.6 10^3/uL (0.2-0.9); Monocytes % 8.9 %; Neutrophils # 3.59 10^3/uL (1.8-7.7); Neutrophils % 50.1 %; Nucleated Red Blood Cells % 0 %; Platelet Count 368 10^3/cmm (157-399); Red Blood Count 4.07 10^6/uL (3.85-5.65); Red Cell Distribution Width 13.2 % (12.1-15.1); White Blood Count 7.18 10^3/uL (3.29-11.43)
[2024-10-07 23:06] VITALS: BP 128/81; PULSE 74; RESP 18; O2SAT 96
[2024-10-07 23:07] LABS: INR 0.98 (0.8-1.2)
[2024-10-07 23:14] LABS: Troponin(5th) Baseline 8 ng/L (0-15)
[2024-10-07 23:22] LABS: Alanine Aminotransferase 13 U/L (0-41); Albumin Level 3.9 g/dL (3.5-5.2); Alkaline Phosphatase 87 U/L (40-130); Aspartate Amino Transferase 13 U/L (0-40); Blood Urea Nitrogen 15 mg/dL (8-23); Carbon Dioxide 22 mmol/L (22-29); Chloride 101 mmol/L (98-107); Creatinine Clr Calc Pharmacy 56.5627; Globulin 2.5 g/dL (1.3-4.6); Glomerular Filtration Rate 54.7 mL/min (90-130); Glucose 416 mg/dL (65-115); Lipase 88 U/L (13-60); NT Pro B Type Natriuretic Pept < 36 pg/mL (0-125); Osmolality Calculated 298 mOsm/kg (285-295); Sodium 135 mmol/L (136-145); Total Bilirubin 0.2 mg/dL (0.15-1.2); Total Protein 6.4 g/dL (6.6-8.7)
[2024-10-07 23:32] VITALS: BP 150/84; PULSE 75; RESP 16; O2SAT 96
[2024-10-07 23:48] VITALS: BP 150/84; PULSE 71; RESP 16; O2SAT 96
[2024-10-08 00:02] VITALS: BP 137/88; PULSE 71; RESP 16; O2SAT 96
[2024-10-08] MEDS: sodium chloride 0.9% 1,000 ML 999 ML IV ×2 (00:05→00:20)
[2024-10-08 00:43] VITALS: BP 137/88; PULSE 62; RESP 16; O2SAT 98
--- NOTE | 2024-10-08 00:54 | ECG_ITS ---
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 Measurements Intervals [place] Rate: 60 P: 43 NH: 150 QRS: 26 QRSD: 89 T: 50 QT: 422 QTc: 424 Interpretive Statements SINUS RHYTHM POSSIBLE RIGHT VENTRICULAR CONDUCTION DELAY [RSR (QR) IN V1/V2] Compared to ECG 10/07/2024 22:49:47 No significant changes Electronically Signed On 10-08-2024 17:45:30 CDT by Ventura De Anda M.D. [email or web address] [id number]
[2024-10-08 01:13] LABS: Troponin 5 2HR 7.42 ng/L (0-15)
[2024-10-08 01:14] LABS: Troponin 5 2HR Delta -0.58 ABS# (0-10)
[2024-10-08 01:19] VITALS: BP 154/80; PULSE 62; RESP 16; O2SAT 97
[2024-10-08 01:43] VITALS: BP 136/82; PULSE 61; RESP 16; O2SAT 98
--- NOTE | 2024-10-08 01:52 | W.ED.CHESTPA ---
HPI - Chest Pain General: Chief Complaint: Chest Pain Stated Complaint: CHEST PAIN Time Seen by Provider: 10/07/24 22:51 History of Present Illness: Patient is a 68-year-old male who presents to the Emergency Department with a chief complaint of chest pain that began approximately 2.5 hours prior to arrival. The patient described the pain as like a knife going right in my chest, located centrally with some radiation to the left side. The pain was exacerbated by movement and partially improved with rest. Associated symptoms included shortness of breath and diaphoresis, although the patient attributes the latter to the hot weather (91?F outside) rather than to his chest pain. The episode lasted approximately 1-1.5 hours. Patient has an implanted loop recorder placed over a year ago due to syncopal episodes while driving, but has not experienced any recurrence of syncope since placement. He denies any history of coronary artery disease and has never had a cardiac catheterization. He also denies fevers, chills, nausea, or vomiting. Medical history is significant for hypertension and diabetes. Related Data Home Medications ?Medication ?Instructions ?Recorded ?Confirmed losartan 50 mg tablet 50 mg PO DAILY 06/24/19 05/06/24 cholecalciferol (vitamin D3) 325 1,000 unit PO DAILY 10/20/20 05/06/24 mcg (13,000 unit) capsule (Maximum D3) gabapentin 100 mg capsule 100 mg PO TID 10/20/20 05/06/24 metformin 500 mg tablet 500 mg PO BID 10/20/20 05/06/24 trazodone 50 mg tablet 50 mg PO DAILY 10/20/20 05/06/24 oxybutynin chloride 5 mg tablet 5 mg PO DAILY 08/12/22 05/06/24 glipizide 10 mg tablet 10 mg PO BID 05/06/24 05/06/24 rosuvastatin 40 mg tablet 40 mg PO QPM 05/06/24 05/06/24 Previous Rx's ?Medication ?Instructions ?Recorded diclofenac sodium 75 mg 75 mg PO Q12H PRN pain #20 tabs 05/06/24 tablet,delayed release tizanidine 4 mg tablet 4 mg PO Q6H PRN muscle spasticity 05/06/24 #20 tabs Allergies Allergy/AdvReac Type Severity Reaction Status Date / Time codeine Allergy Mild rash Verified 09/13/22 11:24 [facility] ED PFSH: Medical History Epilepsy History of high blood pressure Type 2 diabetes mellitus Surgical History H/O removal of cyst S/P rotator cuff repair Family History Father Family history of premature coronary artery disease Social History Smoking and tobacco/nicotine status: never used tobacco/nicotine Alcohol intake: never Substance/Drug Use: never Course Vital Signs: Vital signs: Vital Signs Temperature 98.9 F 10/07/24 22:54 Pulse Rate 61 10/08/24 01:43 Respiratory Rate 16 10/08/24 01:43 Blood Pressure 136/82 10/08/24 01:43 Pulse Oximetry 98 10/08/24 01:43 Oxygen Delivery Me thod Room Air 10/07/24 22:54 MDM - Chest Pain Medical Decision Making ROS: Constitutional: Denies fever or chills. Cardiovascular: Positive for chest pain as described in HPI. Denies history of coronary artery disease. Respiratory: Positive for shortness of breath associated with chest pain. Gastrointestinal: Denies nausea or vomiting. Neurological: No recent syncope. History of syncopal episodes in the past while driving, which led to loop recorder placement. All other systems reviewed and negative or as documented in HPI. PAST HISTORICAL DATA: PMH: Hypertension, Diabetes mellitus (poorly controlled), History of syncope PSH: Implanted loop recorder placement >1 year ago Social: Limited information available PHYSICAL EXAM: General: Patient is well-appearing, in no acute distress. Somewhat dirty in appearance but nontoxic. HEENT: Head normocephalic and atraumatic. Mucous membranes moist. Neck: Supple. Respiratory: No increased work of breathing. Clear breath sounds bilaterally. Cardiac: Heart rate is regular. Pulses are 2+ in all extremities. Abdomen: Obese, soft, nontender, and nondistended. Extremities: No clubbing, cyanosis, or edema. Neurological: No focal neurologic deficits. INITIAL IMPRESSION AND PLAN: Given the history and presentation, the primary working diagnosis is acute chest pain of uncertain etiology with consideration for acute coronary syndrome. Additional considerations include musculoskeletal chest pain, gastroesophageal reflux, and anxiety-related chest discomfort. Based on this initial impression I will order cardiac biomarkers (troponin), complete blood count, basic metabolic panel, coagulation studies, lipase, electrocardiogram, and chest x-ray to evaluate for cardiac and non-cardiac causes of chest pain. Will monitor for any changes in symptoms and reassess after initial diagnostic results. TEST INTERPRETATIONS: EKG: Sinus rhythm with a rate of 73 beats per minute. No ischemic ST elevations or depressions. QTc of 400 milliseconds. Troponin: Initial troponin normal at 8. Delta troponin 7.42, essentially unchanged from initial value (slight decrease). CBC: Unremarkable. White count 7.18, Hemoglobin 11.2, Hematocrit 35, Platelets 368. Coagulation Studies: PT, PTT, and INR normal. Chemistry Panel: BUN 15, Creatinine 1.3, Glucose 416 (suggesting poorly controlled diabetes). Lipase: 88, within normal limits. Chest X-ray: No acute cardiopulmonary processes. Normal mediastinum. Mild cardiomegaly noted. FINAL IMPRESSION: Based on all the above, my clinical impression is most compatible with atypical, non-cardiac chest pain, likely musculoskeletal in origin. The clinical picture is not currently suggestive of acute coronary syndrome, pulmonary embolism, aortic dissection, or pneumothorax. Although other conditions were also considered, they were deemed unlikely based on the clinical information available. CLINICAL DISPOSITION: The patient's current condition is stable in my estimation and the most appropriate and indicated disposition at this time is discharge home with outpatient cardiology follow-up for stress testing. The patient is safe for discharge home because he is currently pain-free, has had two normal troponins with no significant change, a normal EKG without ischemic changes, and a chest x-ray without acute findings. His presentation was atypical for acute coronary syndrome, and his symptoms have completely resolved. The patient has been instructed to follow up with cardiology as an outpatient for stress testing to further evaluate his cardiac risk. RISK STRATIFICATION AND CLINICAL DECISION RULES APPLIED: HEART Score: Low risk (estimated 2-3) based on: - History: Somewhat atypical for ACS (1 point) - ECG: Normal (0 points) - Age: 68 years (2 points) - Risk factors: Hypertension, diabetes (1 point) - Troponin: Normal (0 points) This low HEART score correlates with <2% risk of major adverse cardiac event within 6 weeks, supporting the decision for discharge with outpatient follow-up rather than admission. CASE SUMMARY: 68-year-old male with history of hypertension, diabetes, and previous syncope (with implanted loop recorder) presented with acute onset chest pain described as knife-like, central with left-sided radiation, exacerbated by movement and improved with rest. Pain lasted 1-1.5 hours with associated shortness of breath. Comprehensive evaluation included EKG showing normal sinus rhythm without ischemic changes, two sets of cardiac troponins that were normal and unchanged, and chest x-ray showing mild cardiomegaly but no acute process. Laboratory studies revealed elevated glucose (416) consistent with poorly controlled diabetes but were otherwise unremarkable. Given the atypical nature of the pain (sharp, positional), normal cardiac biomarkers, and normal EKG, the patient was deemed low risk for acute coronary syndrome. The patient became pain-free during his ED stay and was discharged home in stable condition with instructions to follow up with cardiology as an outpatient for stress testing and to return to the ED for recurrent chest pain or new concerning symptoms. Lab Data I reviewed the patient's lab results. 10/07/24 22:52 10/07/24 22:52 Radiology Impressions Chest X-Ray 10/07/24 22:54 IMPRESSION: 1. Negative for infiltrate. 2. Cardiomegaly. Laboratory Results WBC 7.18 10^3/uL (3.29-11.43) 10/07/24 22:52 RBC 4.07 10^6/uL (3.85-5.65) 10/07/24 22:52 Hgb 11.20 g/dL (11.27-16.99) L 10/07/24 22:52 Hct 35.3 % (37-53) L 10/07/24 22:52 MCV 86.7 fl (82-101) 10/07/24 22:52 MCH 27.5 pg (27-33) 10/07/24 22:52 MCHC 31.7 g/dL (30-55) 10/07/24 22:52 RDW 13.2 % (12.1-15.1) 10/07/24 22:52 Plt Count 368 10^3/cmm (157-399) 10/07/24 22:52 MPV 9.3 fL (7.4-10.4) 10/07/24 22:52 Neut % (Auto) 50.1 % 10/07/24 22:52 Lymph % (Auto) 30.6 % 10/07/24 22:52 [place] % (Auto) 8.9 % 10/07/24 22:52 Eos % (Auto) 9.2 % 10/07/24 22:52 Baso % (Auto) 1.1 % 10/07/24 22:52 Neut # (Auto) 3.59 10^3/uL (1.8-7.7) 10/07/24 22:52 Lymph # (Auto) 2.2 10^3/uL (0.8-4.8) 10/07/24 22:52 [place] # (Auto) 0.6 10^3/uL (0.2-0.9) 10/07/24 22:52 Eos # (Auto) 0.7 10^3/uL (0.0-0.8) 10/07/24 22:52 Baso # (Auto) 0.1 10^3/uL (0.0-0.1) 10/07/24 22:52 Nucleated RBC % (auto) 0 % 10/07/24 22:52 Nucleated RBCs # 0.0 /100WBC 10/07/24 22:52 PT 13.60 SECONDS (12.1-14.9) 10/07/24 22:52 INR 0.98 (0.8-1.2) 10/07/24 22:52 APTT 27.0 SECONDS (23.9-36.7) 10/07/24 22:52 Sodium 135 mmol/L (136-145) L 10/07/24 22:52 Potassium 4.0 mmol/L (3.5-5.1) 10/07/24 22:52 Chloride 101 mmol/L (98-107) 10/07/24 22:52 Carbon Dioxide 22 mmol/L (22-29) 10/07/24 22:52 Anion Gap 16.0 (5-19) 10/07/24 22:52 BUN 15 mg/dL (8-23) 10/07/24 22:52 Creatinine 1.3 mg/dL (0.7-1.2) H 10/07/24 22:52 GFR Calculation 54.7 mL/min (90-130) L 10/07/24 22:52 Glucose 416 mg/dL (65-115) H 10/07/24 22:52 Calculated Osmolality 298 mOsm/kg (285-295) H 10/07/24 22:52 Calcium 9.0 mg/dL (8.5-10.5) 10/07/24 22:52 Total Bilirubin 0.2 mg/dL (0.15-1.2) 10/07/24 22:52 AST 13 U/L (0-40) 10/07/24 22:52 ALT 13 U/L (0-41) 10/07/24 22:52 Alkaline Phosphatase 87 U/L (40-130) 10/07/24 22:52 Troponin T Baseline 8 ng/L (0-15) 10/07/24 22:52 Troponin T 120 Minute 7.42 ng/L (0-15) 10/08/24 00:49 Delta Troponin T -0.58 ABS# (0-10) L 10/08/24 00:49 NT-Pro-B Natriuret Pep < 36 pg/mL (0-125) 10/07/24 22:52 Total Protein 6.4 g/dL (6.6-8.7) L 10/07/24 22:52 Albumin 3.9 g/dL (3.5-5.2) 10/07/24 22:52 Globulin 2.5 g/dL (1.3-4.6) 10/07/24 22:52 Lipase 88 U/L (13-60) H 10/07/24 22:52 All radiology interpretation(s) finalized by discharge Discharge Plan Discharge Patient Disposition: Home Clinical Impression: Atypical chest pain Condition: Stable Prescriptions: No Action losartan 50 mg tablet 50 mg PO DAILY metformin 500 mg tablet 500 mg PO BID trazodone 50 mg tablet 50 mg PO DAILY gabapentin 100 mg capsule 100 mg PO TID Maximum D3 325 mcg (13,000 unit) capsule 1,000 unit PO DAILY oxybutynin chloride 5 mg tablet 5 mg PO DAILY glipizide 10 mg Tablet 10 mg PO BID rosuvastatin 40 mg Tablet 40 mg PO QPM tizanidine 4 mg tablet 4 mg PO Q6H PRN (Reason: muscle spasticity) Qty: 20 0RF Rx Instructions: do not exceed 3 doses per 24 hrs diclofenac sodium 75 mg tablet,delayed release (DR/EC) 75 mg PO Q12H PRN (Reason: pain) Qty: 20 0RF Discharge Orders: Discharge ED (Routine); Ordered 10/08/24 Ordered By: Sean Patel Referrals: Celine Trammell MD [Primary Care Provider, Family Practice] Discharge Diet: Diabetic and Low Salt Discharge Activity: Increase activity as tolerated Patient Instructions: Chest Pain (ED), Opioid Safety, Pain Management Activity Restrictions/Additional Instructions: Follow-up Instructions: 1. Schedule an appointment with cardiology within 1-2 weeks for outpatient stress testing 2. Follow up with your primary care physician within one week to address your elevated blood sugar (416) 3. Continue taking all your regular medications as prescribed Return to the Emergency Department immediately if you experience: - Recurrence of chest pain, especially if more severe or lasting longer than previous episode - Shortness of breath that is new or worsening - Dizziness, lightheadedness, or fainting - Palpitations or irregular heartbeat - Nausea or vomiting associated with chest discomfort - Any other concerning symptoms Additional Instructions: - Monitor your blood sugar levels regularly - Avoid strenuous activity until cleared by cardiology - Take acetaminophen (Tylenol) as needed for mild chest discomfort Print Language: Pashto Coding Level of Care Code ED 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
[2024-10-08 01:59] VITALS: BP 136/82; PULSE 62; RESP 16; O2SAT 98
[2024-10-08 02:10] LABS: Glucose Point of Care 323 mg/dL (70-110)
== END 2024-10-08 02:09 | disposition home or self-care (01) ==
PROVIDERS: Emergency Provider Student in an Organized Health Care Education/Training Program; PCP Family Medicine
DX: R07.89 Other chest pain (principal); Z79.84 Long term (current) use of oral hypoglycemic drugs; E11.9 Type 2 diabetes mellitus without complications
CPT/HCPCS: 36415; 36416; 71045; 80053; 82962; 83690; 83880; 84484; 85025; 85610; 85730; 93005; 96360; 99285; J7030

== ENCOUNTER 2024-10-11 10:36 | Emergency (ER) | payer MEDICARE, MEDICAID, SELFPAY ==
--- OUTSIDE RECORDS SUMMARY | 2024-10-08 09:37 | XMS_ITS | Encounter Summary ---
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 This section includes the names of all active insurance providers for the patient. Insurance Provider Type of Coverage Plan Name Start of Policy Coverage End of Policy Coverage Group Number Member ID Insurance Provider's Telephone Number Policy Leon's Name Patient's Relationship to Policy Leon MEDICARE (WNR) MEDICARE (M) PART A Nov 16, 2019 PART A [id number] PATTIE VALLE JR PATIENT MEDICARE (WNR) MEDICARE (M) PART B Nov 16, 2019 PART B [id number] PATTIE VALLE JR PATIENT Selected Encounter This section includes the information on record at [place] for the Encounter. Date/Time Encounter Type Encounter Description Reason Provider Source Oct 08, 2024 02:37 PM PH1 ASSMT&MGMT NQHP 5-10 TELEPHONE PRIMARY CARE ICD-10-CM Z71.89 Other specified counseling BETSY PAIGE Encounter Template Text not used by CT Assessments - Encounter Diagnoses This section includes the primary and secondary diagnoses documented for the Encounter. Date/Time Primary/Secondary Diagnosis Diagnosis Name Provider Source Oct 08, 2024 02:37 PM PRIMARY Other specified counseling KENZIE PAIGE [facility] Plan of Treatment: Future Appointments (+ 6 months) and Future Tests (+/- 45 days) The Plan of Treatment section includes future care activities for the patient from all [place] treatmentfacilities. This section includes future appointments and future orders which are active, pending or scheduled. Future Appointments This section includes appointments that were scheduled to occur 6 months from the date of the Encounter, up to a maximum of 20 appointments. The data comes from all [place] treatment facilities. Appointment Date/Time Appointment Type Appointme nt Facility Name Oct 21, 2024 02:30 PM AMBULATORY - MEDICINE [facility] Apr 08, 2025 09:30 AM [facility]ULATORY - MEDICINE [facility] Social History: Smoking Status (Most current) and Tobacco Use (All prior to encounter date) This section includes the most current, and the historical, smoking and tobacco- related health factors from the [facility] facility where the Encounter took place. Current Smoking Status This section includes the most current smoking, or tobacco-related health factor, from the [facility] facility where the Encounter took place. Date/Time Current Smoking Status Comment Jennifer ity Jan 25, 2023 10:30 AM VA-TOBACCO NEVER USED [facility] Tobacco Use History This section includes a history of the smoking, or tobacco-related health factors, that were collected on or before the date of the Encounter. The data comes from the [place] facility where the Encounter took place. Date/Time Smoking Status/Tobacco Use Comment F acility Jan 27, 2022 09:00 AM VA-TOBACCO NEVER USED [facility] Aug 13, 2020 10:30 AM VA-TOBACCO NEVER USED [facility] Jun 05, 2019 01:57 PM VA-TOBACCO NEVER USED [facility] Jul 16, 2015 08:57 AM LIFETIME NON-USER OF TOBACCO [facility] Encounter Notes: All associated encounter notes This section contains the clinical notes associated to the Encounter. Date/Time Encounter Note(s) Provider Source Oct 08, 2024 02:37 PM TELEPHONE ENCOUNTE R NOTE: LOCAL TITLE: TELEPHONE NOTE STANDARD TITLE: TELEPHONE ENCOUNTER NOTE DATE OF NOTE: OCT 08, 2024@14:37 ENTRY DATE: OCT 08, 2024@14:37:28 AUTHOR: KENZIE PAIGE COSIGNER: URGENCY: STATUS: COMPLETED Received a call from the reporting that he was seen in the ER last night. Reports he called EMS after having chest pain last night. The states, I had to walk home from the ER because my ride was going to take too long, it was not that far. But I walked home after being seen in the ER for a small heart attack. The than stated that he needed a new Glucometer and reports that his is not working but then goes on to tell me what his readings have been recently. Reporting some in rage of 120's and then jumping up into the 300-400 range. the EMS told me that it was not worth a darn because there is no way my blood glucose can be 120s one morning and then the next day be over 400. Let the know that depending on what he is eating and how well controlled his DM is it is very possible to have those large swings. The then asked to renew his medications. The has been out of most of his medications for 2-3 months. The reports that he has not been taking any of his DM medications for at least 2 months. Let the know that without taking his medications the elevated BG is exactly what we would expect to see. well I have been very busy taking care of things for my who has been sick and I just have not had time. And sometimes it give me an error message, I just don't think it is working. Let the know that he could bring it into the clinic and we could test him with both the clinic glucometer and his to see how accurate it is. Then told him he could also call the help line for [facility] to get assistance with the glucometer. Let the know that he has to be consistent with his medications. Refilled all requested medications. Gave the the 72hour reporting number to reports ER visit. Also gave the the [facility] number for technical help with glucometer. The call was transferred to [facility] to schedule follow up. /ilda/ Kenzie Paige RN,BSN [facility] Signed: 10/08/2024 14:46 Receipt Acknowledged By: * AWAITING SIGNATURE * JORDEN BOLDEN JOHANNA R [facility]
--- OUTSIDE RECORDS SUMMARY | 2024-10-09 04:25 | XMS_ITS | Encounter Summary ---
Author Name [facility] [place] [facility] Address [address] [place] [address] Care Team Providers Care Electroplater Automatic Name Role Phone YUANJORDEN KWON Primary Care Provider Unavailabl e Insurance Providers: [...] PART A Nov 16, 2019 PART A [id number] PATTIE VALLE JR PATIENT MEDICARE (WNR) MEDICARE (M) PART B Nov 16, 2019 PART B [id number] PATTIE VALLE JR PATIENT Selected Encounter This section includes the information on record at [place] for the Encounter. Date/Time Encounter Type Encounter Description Reason Provider Source Oct 09, 2024 09:25 AM Outpatient Encounter [facility] CONSULT MAUDE IHAnand Encounter Template Text not used by [facility] Plan of Treatment: Future Appointments (+ 6 months) and Future Tests (+/- 45 days) The Plan of Treatment section includes future care activities for the patient from all [facility] treatment[facility]ilities. This section includes future appointments and future orders which are active, pending or scheduled. Future Appointments This section includes appointments that were scheduled to occur 6 months from the date of the Encounter, up to a maximum of 20 appointments. The data comes from all [place] treatment facilities. Appointment Date/Time Appointment Type Appointme nt Facility Name Oct 21, 2024 02:30 PM [facility]ATORY - MED[facility]INE [facility] Apr 08, 2025 09:30 AM [facility]ORY - MED[facility]INE [facility] Encounter Notes: All associated encounter notes This section contains the clinical notes associated to the Encounter. Date/Time Encounter Note(s) Provider Source Oct 07, 2024 11:00 AM NONVA NOTE: LOCAL TITLE: COMMUNITY CARE-TRINA SELF PRESENTING CARE COORD PLAN STANDARD TITLE: NONVA NOTE DATE OF NOTE: OCT 07, 2024@11:00 ENTRY DATE: OCT 09, 2024@09:25:27 AUTHOR: JULIO SANTORO EXP COSIGNER: URGENCY: STATUS: COMPLETED COMMUNITY CARE-TRINA SELF PRESENTING CARE COORD PLAN [id number] PB Has ADDENDA Emergency Notification Intake Date Presenting to the Facility: 10/07/2024 10:45 AM CDT Method of Contact: Provider Notified from [employer] worklist Notification ID: [id number] [facility] Referral #: [id number] [facility] Name: Hospital: [facility] Address: City: [place] State: [place] Zip Code: Discharge Disposition Date of discharge: Sep Disposition Discharge to home Phone : [facility] Point of Contact: Name: Phone: Chief complaint: Chest Pain Discharge Disposition Date of discharge: Sep Disposition: Discharge to home Clinical Impression: Atypical chest pain CASE SUMMARY: 68-year-old male with history of hypertension, diabetes, and previous syncope (with implanted loop recorder) presented with acute onset chest pain described as knife-like, central with left-sided radiation, exacerbated by movement and improved with rest. Pain lasted 1-1.5 hours with associated shortness of breath. Comprehensive evaluation included EKG showing normal sinus rhythm without ischemic changes, two sets of cardiac troponins that were normal and unchanged, and chest x-ray showing mild cardiomegaly but no acute process. Laboratory studies revealed elevated glucose (416) consistent with poorly controlled diabetes but were otherwise unremarkable. Given the atypical nature of the pain (sharp, positional), normal cardiac biomarkers, and normal EKG, the patient was deemed low risk for acute coronary syndrome. The patient became pain-free during his ED stay and was discharged home in stable condition with instructions to follow up with cardiology as an outpatient for stress testing and to return to the ED for recurrent chest pain or new concerning symptoms. Follow-up Instructions: 1. Schedule an appointment with cardiology within 1-2 weeks for outpatient stress testing 2. Follow up with your primary care physician within one week to address your elevated blood sugar (416) 3. Continue taking all your regular medications as prescribed Additional Instructions: - Monitor your blood sugar levels regularly - Avoid strenuous activity until cleared by cardiology - Take acetaminophen (Tylenol) as needed for mild chest discomfort Appointment Management: Previous Cardiology consult . Cardiology consult entered/held for provider review/sig. if they concur. Appointment Location: [facility] Provider Appointment Date: To be scheduled (ED Provider: Sean Patel MD) /ilda/ JULIO LOVE,RN Signed: 10/09/2024 09:33 Receipt Acknowledged By: * AWAITING SIGNATURE * JORDEN BOLDEN 10/09/2024 10:13 /es/ FLORENCIO JIMÉNEZ * AWAITING SIGNATURE * ROSE CHASE * AWAITING SIGNATURE * SHANE CRESPO 10/07/2024 ADDENDUM STATUS: COMPLETED VistA Imaging Scanned Document - Addendum. [facility] SCANNED DOCUMENT SIGNATURE NOT REQUIRED Electronically Filed: 10/09/2024 by: JULIO Ying [facility]
--- OUTSIDE RECORDS SUMMARY | 2024-10-11 06:10 | XMS_ITS | Continuity of Care Document ---
Author Name [facility] Organization [facility] Care Team Providers Care Sounding Device Operator Name Role Phone [facility] Unavailable Unavailable Problems Combined list of problems from Department of [facility] and [facility] facilities. It does not include entries that were removed or entered in error. Problem Status Onset Date Problem Type Date of Resolution Comments Source Carpal tunnel syndrome of left wrist Active Condition Jul 07, 2021 Entered By: ISELA BOLDEN MY Comment: Rt. CTS release 02/2021 [place] [facility] Chronic low back pain Active Condition [place] [facility] Chronic neck [facility] Active Condition [place] [facility] HLD - Hyperlipidemia Active Condition [place] [facility] HTN - Hypertension Active Condition [place] [facility] Insomnia Active Condition [place] [facility] Neuropathy Active Condition [place] [facility] Seizure disorder Active Condition [place] [facility] Shoulder pain Active Condition Jul Entered By: ISELA BOLDEN MY Comment: OA right shoulder [place] [facility] Syncope Active Condition Nov 17 Entered By: ISELA BOLDEN MY Comment: loop cardiac recorder placed 08/2021 [place] [facility] Type 2 diabetes mellitus Active Condition [place] [facility] Vitamin D deficiency Active Condition [place] [facility] Diagnosis: ICD-10-CM Z71.89 Other specified counseling Active Diagnosis [facility] Diagnosis: ICD-10-CM I10 Essential (primary) hypertension Active Diagnosis [place] [facility] Diagnosis: ICD-10-CM E11.9 Type 2 diabetes mellitus without complications Active Diagnosis [place] [facility] Diagnosis: ICD-10-CM Z03.89 Encntr for obs for oth suspected diseases and cond ruled out Active Diagnosis [place] [facility] Medications Combined list of outpatient medications from Department of Defense and Veterans Affairs facilities.Medications provided include 1) outpatient medications from the last 15 months, and 2) patient-reported medications. Medication Details Route Status Patient Instructions Prescription Expires Prescription Number Last Dispense Date Ordering Provider Order Date Order Qty Source CHOLECALCIF LYNDA 25MCG (1,000UNIT) TAB TAKE ONE TABLET BY MOUTH ONCE A DAY FOR VITAMIN D DEFICIEN CY. ORAL ACTIVE 04/09/2025 [id number] 5 HUGO GOMEZ 2023 100 [facility] CHOLECALCIF LYNDA 25MCG (1,000UNIT) TAB TAKE ONE TABLET BY MOUTH ONCE A DAY FOR VITAMIN D DEFICIEN CY. ORAL DISCONT INUED 03/10/2024 [id number] 4 [facility] 2022 100 [facility] DICLOFENAC NA 1% GEL,TOP APPLY 2 GM TO AFFECTED AREA(S) FOUR TIMES A DAY FOR PAIN DO NOT EXCEED MORE THAN 16 GRAMS DAILY TO ANY LOWER EXTREMIT Y JOINT. NOT MORE THAN 8 GRAMS DAILY TO ANY UPPER EXTREMIT Y JOINT. MAX 32GM/DAY OVER ALL JOINTS. (MEASURE DOSE WITH RULER ATTACHED INSIDE BOX) TOPICA L ACTIVE 04/09/2025 [id number] 5 HUGO GOMEZ 2024 300 [facility] DICLOFENAC NA 1% GEL,TOP APPLY 2 GM TO AFFECTED AREA(S) FOUR TIMES A DAY FOR PAIN DO NOT EXCEED MORE THAN 16 GRAMS DAILY TO ANY LOWER EXTREMIT Y JOINT. NOT MORE THAN 8 GRAMS DAILY TO ANY UPPER EXTREMIT Y JOINT. MAX 32GM/DAY OVER ALL JOINTS. (MEASURE DOSE WITH RULER ATTACHED INSIDE BOX) TOPICA L DISCONT INUED 10/16/2024 [id number] 4 [facility] 2023 300 [facility] EMPAGLIFLOZ IN 25MG TAB TAKE ONE TABLET BY MOUTH ONCE A DAY FOR DIABETES ORAL ACTIVE 04/09/2025 [id number] 5 HUGO GOMEZ 2024 90 [facility] EMPAGLIFLOZ IN 25MG TAB TAKE ONE TABLET BY MOUTH ONCE A DAY FOR DIABETES ORAL DISCONT INUED 10/16/2024 [id number] 4 [facility] 2023 90 [facility] GABAPENTIN 100MG CAP TAKE ONE CAPSULE BY MOUTH THREE TIMES A DAY FOR PAIN ORAL ACTIVE 04/09/2025 [id number] 5 HUGO GOMEZ M 2024 270 [facility] GABAPENTIN 100MG CAP TAKE ONE CAPSULE BY MOUTH THREE TIMES A DAY FOR PAIN ORAL DISCONT INUED 10/16/2024 [id number] 4 [facility] BOLDEN 2023 270 [facility] GLIPIZIDE 10MG TAB TAKE ONE TABLET BY MOUTH TWO TIMES A DAY BEFORE MEALS FOR DIABETES . TAKE 30 MINUTES BEFORE EATING. ORAL ACTIVE 04/09/2025 [id number] 5 [facility] 2024 180 [facility] GLIPIZIDE 10MG TAB TAKE ONE TABLET BY MOUTH TWO TIMES A DAY BEFORE MEALS FOR DIABETES . TAKE 30 MINUTES BEFORE EATING. ORAL DISCONT INUED 10/16/2024 [id number] 4 [facility] 2023 180 [facility] HYDROXYZINE HCL 25MG TAB TAKE ONE TABLET BY MOUTH AT BEDTIME NEEDED *MAY CAUSE DROWSINE SS* ORAL DISCONT INUED BY PROVIDE R 11/24/2023 [id number] 4 [facility] 2022 90 [facility] [place] POTASSIUM 100MG TAB TAKE ONE TABLET BY MOUTH ONCE A DAY TO LOWER BLOOD PRESSURE ORAL ACTIVE 04/09/2025 [id number] 5 JASON DEEP 2023 90 [facility] [place] POTASSIUM 100MG TAB TAKE ONE TABLET BY MOUTH ONCE A DAY TO LOWER BLOOD PRESSURE ORAL DISCONT INUED 03/10/2024 [id number] 4 [facility] BOLDEN 2022 90 [facility] MAGNESIUM OXIDE 400MG TAB TAKE TWO TABLETS BY MOUTH ONCE A DAY FOR DIETARY MAGNESIU M SUPPLEME NTATION ORAL ACTIVE 04/09/2025 [id number] 5 ROBBYHUGO TIERNEY M 2024 240 [facility] MAGNESIUM OXIDE 400MG TAB TAKE TWO TABLETS BY MOUTH ONCE A DAY FOR DIETARY MAGNESIU M SUPPLEME NTATION ORAL DISCONT INUED 10/16/2024 [id number] [facility] METFORMIN [facility] 1000MG TAB TAKE ONE TABLET BY MOUTH TWICE A DAY WITH MEALS NEEDED FOR BLOOD SUGAR CONTROL. TAKE WITH FOOD. AVOID ALCOHOL. DISCONTI NUE BEFORE GETTING XRAY DYE. ORAL ACTIVE 04/09/2025 [id number] 5 HUGO GOMEZ 2023 180 [facility] METFORMIN HCL 1000MG TAB TAKE ONE TABLET BY MOUTH TWICE A DAY WITH MEALS NEEDED FOR BLOOD SUGAR CONTROL. TAKE WITH FOOD. AVOID ALCOHOL. DISCONTI NUE BEFORE GETTING XRAY DYE. ORAL 11/24/2023 [id number] 4 [facility] 2022 180 [facility] NAPROXEN 500MG TAB TAKE ONE TABLET BY MOUTH TWICE DAILY NEEDED FOR PAIN AND/OR INFLAMMA TION. TAKE WITH FOOD. ORAL ACTIVE 04/09/2025 [id number] 5 HUGO GOMEZ 2023 180 [facility] NAPROXEN 500MG TAB TAKE ONE TABLET BY MOUTH TWICE DAILY NEEDED FOR PAIN AND/OR INFLAMMA TION. TAKE WITH FOOD. ORAL DISCONT INUED 03/10/2024 [id number] 4 [facility] BOLDEN 2022 180 [facility] OXYBUTYNIN CL 5MG TAB TAKE TWO TABLETS BY MOUTH TWICE A DAY FOR OVERACTI VE BLADDER ORAL ACTIVE 04/09/2025 [id number] 5 HUGO GOMEZ 2024 360 [facility] OXYBUTYNIN CL 5MG TAB TAKE TWO TABLETS BY MOUTH TWICE A DAY FOR OVERACTI VE BLADDER ORAL DISCONT INUED 07/25/2024 [id number] [facility] BOLDEN 2023 360 [facility] POLYETHYLEN E GLYCOL 3350 PWDR,ORAL MIX AND DRINK 1 CAPFUL BY MOUTH ONCE A DAY FOR CONSTIPA TION (MEASURE WITH CAP AND MIX IN 8 OZ OF WATER) ORAL ACTIVE 04/09/2025 [id number] 4 HUGO GOMEZ 2023 1530 [facility] POLYETHYLEN E GLYCOL 3350 PWDR,ORAL MIX AND DRINK 1 CAPFUL BY MOUTH ONCE A DAY FOR CONSTIPA TION (MEASURE WITH CAP AND MIX IN 8 OZ OF WATER) ORAL DISCONT INUED 01/26/2024 [id number] 4 [facility] 2022 1530 [facility] ROSUVASTATI N CA 40MG TAB TAKE ONE TABLET BY MOUTH EVERY EVENING FOR HIGH CHOLESTE ROL (REPORT ANY MUSCLE PAIN OR WEAKNESS ) ORAL ACTIVE 04/09/2025 [id number] 5 HUGO GOMEZ 2024 90 [facility] ROSUVASTATI N CA 40MG TAB TAKE ONE TABLET BY MOUTH EVERY EVENING FOR HIGH CHOLESTE ROL (REPORT ANY MUSCLE PAIN OR WEAKNESS ) ORAL DISCONT INUED 10/16/2024 [id number] 4 [facility] 2023 90 [facility] TRAZODONE HCL 100MG TAB TAKE ONE TABLET BY MOUTH AT BEDTIME FOR DEPRESSI ON ORAL ACTIVE 04/09/2025 [id number] 5 HUGO GOMEZ 2023 90 [facility] TRAZODONE HCL 100MG TAB TAKE ONE TABLET BY MOUTH AT BEDTIME FOR DEPRESSI ON ORAL DISCONT INUED 03/10/2024 [id number] 4 [facility] 2023 90 [facility] TRIAMCINOLO NE ACETONIDE 0.1% CREAM,TOP APPLY LIGHTLY TO AFFECTED AREA(S) TWICE A DAY FOR RASH. (EXTERNA L USE ONLY) TOPICA L ACTIVE 04/09/2025 [id number] 4 HUGO GOMEZ 2023 454 [facility] TRIAMCINOLO NE ACETONIDE 0.1% CREAM,TOP APPLY LIGHTLY TO AFFECTED AREA(S) TWICE A DAY FOR RASH. (EXTERNA L USE ONLY) TOPICA L 11/24/2023 [id number] 4 [facility] 2022 454 [facility] Allergies, Adverse Reactions, Alerts Combined list of allergies from Department of Defense and Veterans Affairs facilities. It does not include entries that were removed or entered in error. Substance Category Reaction Severity Reaction type Status Date Reported Comments Source ATORVASTATIN Propensity to adverse reactions to drug (finding) active 8 [facility] CODEINE Propensity to adverse reactions to drug (finding) Lip swelling, Swelling of lower limb, Swelling of upper limb active 6 [facility] Immunizations Combined list of available immunizations from the Department of Defense and Veterans Affairs facilities. Immunization Series Date Given Administered By Site Reaction Lot Number CVX Code Drug Office Services Specialist Status Comments Source INFLUENZA, HIGH-DOSE, TRIVALENT, PF 2023 YENI BUCKLEY LEFT DELTO ID [id number] 135 complet ed [facility] COVID-19 (MODERNA), MRNA, LNP-S, PF, 50 MCG/0.5 ML (AGES 12+ YEARS) 2023 YENI BUCKLEY RIGHT DELTO ID [id number] 312 complet ed [facility] INFLUENZA, HIGH-DOSE, QUADRIVALENT 2022 FELECIA CRESPO RIGHT DELTO ID [id number] 197 complet ed [facility] INFLUENZA VACCINE, QUADRIVALENT, ADJUVANTED 2021 205 complet ed [facility] PNEUMOCOCCAL CONJUGATE PCV20, POLYSACCHARID E [id number] CONJUGATE, ADJUVANT, PF 2021 216 complet ed [facility] INFLUENZA, INJECTABLE, QUADRIVALENT, PRESERVATIVE FREE 2020 150 complet ed [facility] TDAP 2020 115 complet ed [facility] COVID-19 (MODERNA), MRNA, LNP-S, PF, 100 MCG OR 50 MCG DOSE 2020 207 complet ed HISTORICA L INFORMATI ON - FROM OTHER PROVIDER, Partner:David HERNANDEZ.Admin istered by:[facility] 01-2225.( [id number]).NDC:[id number] .Address: [address] [place], [place] [id number] Dosage: ML 0.5 [facility] COVID-19 (MODERNA), MRNA, LNP-S, PF, 100 MCG OR 50 MCG DOSE 2020 207 complet ed HISTORICA L INFORMATI ON - FROM OTHER PROVIDER, Partner:David HERNANDEZ.Admin istered by:[facility] 89-1451.( [id number]).NDC:[id number] .Address: [address] [place] [address] .[place].[phone] Dosage: ML 0.5 [facility] INFLUENZA, SEASONAL, INJECTABLE, PRESERVATIVE FREE 1 2019 140 complet ed HISTORICA L INFORMATI ON - FROM OTHER REGISTRY, [facility] INFLUENZA, UNSPECIFIED FORMULATION 2019 88 complet ed [facility] ZOSTER RECOMBINANT 2 2019 187 complet ed [facility] INFLUENZA, UNSPECIFIED FORMULATION 2018 88 complet ed [facility] ZOSTER RECOMBINANT 1 2018 187 complet ed [facility] PNEUMOCOCCAL POLYSACCHARID E [id number] 2017 33 complet ed [facility] INFLUENZA, SEASONAL, INJECTABLE, PRESERVATIVE FREE 2016 140 complet ed Left Deltoid [facility] Results Combined list of recent chemistry, hematology and other laboratory results from Department of Defense and Veterans Affairs, ranging from 15 months to all on record, depending upon the facility. Order Name Results Value Reference Range Date Interpretation Specimen Comments Source HGA1C HEMOGLOBIN A1C/HEMOGLO BIN.TOTAL IN BLOOD 7.3 4.0 - 6.0 04/08 H Specimen Type: BLOOD No comment entered. Ordering Provider: ISELA BOLDEN MY Report Released Date/Time: Jan 25, 2023 10:40 AM Reporting Lab: [place] [facility] [address] [place] [address] Performing Lab: [place] [facility] [address] [place] [address] [facility] TSH (MA-PB) THYROTROPIN [UNITS/VOLU ME] IN SERUM OR PLASMA 1.101 u[IU]/ mL 0.47 - 5 04/08 Specimen Type: SERUM No comment entered. Ordering Provider: ISELA BOLDEN MY Report Released Date/Time: Jan 25, 2023 10:40 AM Reporting Lab: [place] [facility] [address] [place] [address] Performing Lab: [place] [facility] [address] [place] [address] [facility] PROST. SPECIFIC AG.(PB-STL ) PROSTATE SPECIFIC AG [MASS/VOLUM E] IN SERUM OR PLASMA 0.60 ng/mL 0 - 4 04/08 Specimen Type: SERUM No comment entered. Ordering Provider: ISELA BOLDEN MY Report Released Date/Time: Jan 25, 2023 10:40 AM Reporting Lab: [place] [facility] [address] [place] [address] Performing Lab: [place] [facility] [address] [place] [address] [facility] CHOLESTERO L PANEL (PB) CHOLESTEROL [MASS/VOLUM E] IN SERUM OR PLASMA 195 mg/dL 0 - 200 04/08 Specimen Type: PLASMA Comment: LDL calculation invalid when Triglyceride exceeds 250 mg/dl Ordering Provider: ISELA BOLDEN MY Report Released Date/Time: Jan 25, 2023 10:40 AM Reporting Lab: [place] [facility] [address] [place] [address] Performing Lab: [place] [facility] [address] [place] [address] [facility] CHOLESTERO L PANEL (PB) TRIGLYCERID E [MASS/VOLUM E] IN SERUM OR PLASMA 384 mg/dL 0 - 150 04/08 H Specimen Type: PLASMA Comment: LDL calculation invalid when Triglyceride exceeds 250 mg/dl Ordering Provider: ISELA BOLDEN MY Report Released Date/Time: Jan 25, 2023 10:40 AM Reporting Lab: [place] [facility] [address] [place] [address] Performing Lab: [place] [facility] [address] [place] [address] [facility] CHOLESTERO L PANEL (PB) CHOLESTEROL IN LDL [MASS/VOLUM E] IN SERUM OR PLASMA BY CALCULATION commen tmg/dL 04/08 Specimen Type: PLASMA Comment: LDL calculation invalid when Triglyceride exceeds 250 mg/dl Ordering Provider: ISELA BOLDEN MY Report Released Date/Time: Jan 25, 2023 10:40 AM Reporting Lab: [place] [facility] [address] [place] [address] Performing Lab: [place] [facility] [address] [place] [address] [facility] CHOLESTERO L PANEL (PB) CHOLESTEROL IN HDL [MASS/VOLUM E] IN SERUM OR PLASMA 28.7 mg/dL 40 04/08 L Specimen Type: PLASMA Comment: LDL calculation invalid when Triglyceride exceeds 250 mg/dl Ordering Provider: ISELA BOLDEN MY Report Released Date/Time: Jan 25, 2023 10:40 AM Reporting Lab: [place] [facility] [address] [place] [address] Performing Lab: [place] [facility] [address] [place] [address] [facility] CHOLESTERO L PANEL (PB) CHOLESTEROL IN HDL/CHOLEST LYNDA.TOTAL [MASS RATIO] IN SERUM OR PLASMA 14.7 25 04/08 Specimen Type: PLASMA Comment: LDL calculation invalid when Triglyceride exceeds 250 mg/dl Ordering Provider: ISELA BOLDEN MY Report Released Date/Time: Jan 25, 2023 10:40 AM Reporting Lab: [place] [facility] [address] [place] [address] Performing Lab: [place] [facility] [address] [place] [address] [facility] CHOLESTERO L PANEL (PB) CHOLESTEROL IN LDL [MASS/VOLUM E] IN SERUM OR PLASMA BY DIRECT ASSAY 103.6 mg/dL 0 - 99.9 04/08 H Specimen Type: PLASMA Comment: LDL calculation invalid when Triglyceride exceeds 250 mg/dl Ordering Provider: ISELA BOLDEN MY Report Released Date/Time: Jan 25, 2023 10:40 AM Reporting Lab: [place] [facility] [address] [place] [address] Performing Lab: [place] [facility] [address] [place] [address] [facility] COMPREHENS RUTHANN METABOLIC PANEL CREATININE [MASS/VOLUM E] IN SERUM OR PLASMA 1.26 mg/dL 0.7 - 1.3 04/08 Specimen Type: PLASMA Comment: LDL calculation invalid when Triglyceride exceeds 250 mg/dl Ordering Provider: ISELA BOLDEN MY Report Released Date/Time: Jan 25, 2023 10:40 AM Reporting Lab: [place] [facility] [address] [place] [address] Performing Lab: [place] [facility] [address] [place] [address] [facility] COMPREHENS RUTHANN METABOLIC PANEL UREA NITROGEN [MASS/VOLUM E] IN SERUM OR PLASMA 13 mg/dL 9 - 25 04/08 Specimen Type: PLASMA Comment: LDL calculation invalid when Triglyceride exceeds 250 mg/dl Ordering Provider: ISELA BOLDEN MY Report Released Date/Time: Jan 25, 2023 10:40 AM Reporting Lab: [place] [facility] [address] [place] [address] Performing Lab: [place] [facility] [address] [place] [address] [facility] COMPREHENS RUTHANN METABOLIC PANEL GLUCOSE [MASS/VOLUM E] IN SERUM OR PLASMA 218 mg/dL 72 - 99 04/08 H Specimen Type: PLASMA Comment: LDL calculation invalid when Triglyceride exceeds 250 mg/dl Ordering Provider: ISELA BOLDEN MY Report Released Date/Time: Jan 25, 2023 10:40 AM Reporting Lab: [place] [facility] [address] [place] [address] Performing Lab: [place] [facility] [address] [place] [address] [facility] COMPREHENS RUTHANN METABOLIC PANEL SODIUM [MOLES/VOLU ME] IN SERUM OR PLASMA 138 meq/L 136 - 145 04/08 Specimen Type: PLASMA Comment: LDL calculation invalid when Triglyceride exceeds 250 mg/dl Ordering Provider: ISELA BOLDEN MY Report Released Date/Time: Jan 25, 2023 10:40 AM Reporting Lab: [place] [facility] [address] [place] [address] Performing Lab: [place] [facility] [address] [place] [address] [facility] COMPREHENS RUTHANN METABOLIC PANEL POTASSIUM [MOLES/VOLU ME] IN SERUM OR PLASMA 4.2 meq/L 3.5 - 5 04/08 Specimen Type: PLASMA Comment: LDL calculation invalid when Triglyceride exceeds 250 mg/dl Ordering Provider: ISELA BOLDEN MY Report Released Date/Time: Jan 25, 2023 10:40 AM Reporting Lab: [place] [facility] [address] [place] [address] Performing Lab: [place] [facility] [address] [place] [address] [facility] COMPREHENS RUTHANN METABOLIC PANEL CHLORIDE [MOLES/VOLU ME] IN SERUM OR PLASMA 108 meq/L 98 - 107 04/08 H Specimen Type: PLASMA Comment: LDL calculation invalid when Triglyceride exceeds 250 mg/dl Ordering Provider: ISELA BOLDEN MY Report Released Date/Time: Jan 25, 2023 10:40 AM Reporting Lab: [place] [facility] [address] [place] [address] Performing Lab: [place] [facility] [address] [place] [address] [facility] COMPREHENS RUTHANN METABOLIC PANEL CARBON DIOXIDE, TOTAL [MOLES/VOLU ME] IN SERUM OR PLASMA 20 meq/L 22 - 31 04/08 L Specimen Type: PLASMA Comment: LDL calculation invalid when Triglyceride exceeds 250 mg/dl Ordering Provider: ISELA BOLDEN MY Report Released Date/Time: Jan 25, 2023 10:40 AM Reporting Lab: [place] [facility] [address] [place] [address] Performing Lab: [place] [facility] [address] [place] [address] [facility] COMPREHENS RUTHANN METABOLIC PANEL CALCIUM [MASS/VOLUM E] IN SERUM OR PLASMA 9.3 mg/dL 8.4 - 10.4 04/08 Specimen Type: PLASMA Comment: LDL calculation invalid when Triglyceride exceeds 250 mg/dl Ordering Provider: ISELA BOLDEN MY Report Released Date/Time: Jan 25, 2023 10:40 AM Reporting Lab: [place] [facility] [address] [place] [address] Performing Lab: [place] [facility] [address] [place] [address] [facility] COMPREHENS RUTHANN METABOLIC PANEL PROTEIN [MASS/VOLUM E] IN SERUM OR PLASMA 7.2 g/dL 6 - 8.6 04/08 Specimen Type: PLASMA Comment: LDL calculation invalid when Triglyceride exceeds 250 mg/dl Ordering Provider: ISELA BOLDEN MY Report Released Date/Time: Jan 25, 2023 10:40 AM Reporting Lab: [place] [facility] [address] [place] [address] Performing Lab: [place] [facility] [address] [place] [address] [facility] COMPREHENS RUTHANN METABOLIC PANEL ALBUMIN [MASS/VOLUM E] IN SERUM OR PLASMA 4.0 g/dL 3.4 - 5 04/08 Specimen Type: PLASMA Comment: LDL calculation invalid when Triglyceride exceeds 250 mg/dl Ordering Provider: ISELA BOLDEN MY Report Released Date/Time: Jan 25, 2023 10:40 AM Reporting Lab: [place] [facility] [address] [place] [address] Performing Lab: [place] [facility] [address] [place] [address] [facility] COMPREHENS RUTHANN METABOLIC PANEL BILIRUBIN.T OTAL [MASS/VOLUM E] IN SERUM OR PLASMA 0.3 mg/dL 0.2 - 1.2 04/08 Specimen Type: PLASMA Comment: LDL calculation invalid when Triglyceride exceeds 250 mg/dl Ordering Provider: ISELA BOLDEN MY Report Released Date/Time: Jan 25, 2023 10:40 AM Reporting Lab: [place] [facility] [address] [place] [address] Performing Lab: [place] [facility] [address] [place] [address] [facility] COMPREHENS RUTHANN METABOLIC PANEL ALKALINE PHOSPHATASE [ENZYMATIC ACTIVITY/VO LUME] IN SERUM OR PLASMA 68 U/L 40 - 150 04/08 Specimen Type: PLASMA Comment: LDL calculation invalid when Triglyceride exceeds 250 mg/dl Ordering Provider: ISELA BOLDEN MY Report Released Date/Time: Jan 25, 2023 10:40 AM Reporting Lab: [place] [facility] [address] [place] [address] Performing Lab: [place] [facility] [address] [place] [address] [facility] COMPREHENS RUTHANN METABOLIC PANEL ASPARTATE AMINOTRANSF ERASE [ENZYMATIC ACTIVITY/VO LUME] IN SERUM OR PLASMA 19 U/L 5 - 34 04/08 Specimen Type: PLASMA Comment: LDL calculation invalid when Triglyceride exceeds 250 mg/dl Ordering Provider: ISELA BOLDEN MY Report Released Date/Time: Jan 25, 2023 10:40 AM Reporting Lab: [place] [facility] [address] [place] [address] Performing Lab: [place] [facility] [address] [place] [address] [facility] COMPREHENS RUTHANN METABOLIC PANEL ALANINE AMINOTRANSF ERASE [ENZYMATIC ACTIVITY/VO LUME] IN SERUM OR PLASMA 20 U/L 8 - 40 04/08 Specimen Type: PLASMA Comment: LDL calculation invalid when Triglyceride exceeds 250 mg/dl Ordering Provider: ISELA BOLDEN MY Report Released Date/Time: Jan 25, 2023 10:40 AM Reporting Lab: [place] [facility] [address] [place] [address] Performing Lab: [place] [facility] [address] [place] [address] [facility] COMPREHENS [place] METABOLIC PANEL GLOMERULAR FILTRATION RATE/1.73 SQ M.PREDICTED [VOLUME RATE/AREA] IN SERUM, PLASMA OR BLOOD BY CREATININE- BASED FORMULA (CKD-EPI 2020) 62 04/08 Specimen Type: PLASMA Comment: LDL calculation invalid when Triglyceride exceeds 250 mg/dl Ordering Provider: ISELA BOLDEN MY Report Released Date/Time: Jan 25, 2023 10:40 AM Reporting Lab: [place] [facility] [address] [place] [address] Performing Lab: [place] [facility] [address] [place] [id number] [facility] TSH (MA-PB-STL ) THYROTROPIN [UNITS/VOLU ME] IN SERUM OR PLASMA 1.358 u[IU]/ mL 0.47 - 5 01/24 Specimen Type: SERUM No comment entered. Ordering Provider: ISELA BOLDEN MY Report Released Date/Time: Aug 03, 2022 08:49 AM Reporting Lab: [place] [facility] [address] [place] [address] [place] [address] Performing Lab: [place] [facility] [address] [place] [address] [facility] VITAMIN D, 25-HYDROXY 25-HYDROXYV ITAMIN D3 [MASS/VOLUM E] IN SERUM OR PLASMA 48.5 ng/mL 30 - 96 01/24 Specimen Type: SERUM No comment entered. Ordering Provider: ISELA BOLDEN MY Report Released Date/Time: Aug 03, 2022 08:49 AM Reporting Lab: [place] [facility] [address] [place] [address] Performing Lab: [place] [facility] [address] [place] [address] [facility] HGA1C HEMOGLOBIN A1C/HEMOGLO BIN.TOTAL IN BLOOD 7.0 4.0 - 6.0 01/24 H Specimen Type: BLOOD No comment entered. Ordering Provider: ISELA BOLDEN MY Report Released Date/Time: Aug 03, 2022 08:49 AM Reporting Lab: [place] [facility] [address] [place] [address] Performing Lab: [place] [facility] [address] [place] [address] [facility] PROST. SPECIFIC AG.(PB-STL ) PROSTATE SPECIFIC AG [MASS/VOLUM E] IN SERUM OR PLASMA 0.47 ng/mL 0 - 4 01/24 Specimen Type: SERUM No comment entered. Ordering Provider: ISELA BOLDEN MY Report Released Date/Time: Aug 03, 2022 08:49 AM Reporting Lab: [place] [facility] [address] [place] [address] Performing Lab: [place] [facility] [address] [place] [address] [facility] CHOLESTERO L PANEL (PB) CHOLESTEROL [MASS/VOLUM E] IN SERUM OR PLASMA 121 mg/dL 0 - 200 01/24 Specimen Type: PLASMA Comment: LDL calculation invalid when Triglyceride exceeds 250 mg/dl Ordering Provider: ISELA BOLDEN MY Report Released Date/Time: Aug 03, 2022 08:49 AM Reporting Lab: [place] [facility] [address] [place] [address] Performing Lab: [place] [facility] [address] [place] [address] [facility] CHOLESTERO L PANEL (PB) TRIGLYCERID E [MASS/VOLUM E] IN SERUM OR PLASMA 279 mg/dL 0 - 150 01/24 H Specimen Type: PLASMA Comment: LDL calculation invalid when Triglyceride exceeds 250 mg/dl Ordering Provider: ISELA BOLDEN MY Report Released Date/Time: Aug 03, 2022 08:49 AM Reporting Lab: [place] [facility] [address] [place] [address] Performing Lab: [place] [facility] [address] [place] [address] [facility] CHOLESTERO L PANEL (PB) CHOLESTEROL IN LDL [MASS/VOLUM E] IN SERUM OR PLASMA BY CALCULATION commen tmg/dL 01/24 Specimen Type: PLASMA Comment: LDL calculation invalid when Triglyceride exceeds 250 mg/dl Ordering Provider: ISELA BOLDEN MY Report Released Date/Time: Aug 03, 2022 08:49 AM Reporting Lab: [place] [facility] [address] [place] [address] Performing Lab: [place] [facility] [address] [place] [address] [facility] CHOLESTERO L PANEL (PB) CHOLESTEROL IN HDL [MASS/VOLUM E] IN SERUM OR PLASMA 24.4 mg/dL 40 01/24 L Specimen Type: PLASMA Comment: LDL calculation invalid when Triglyceride exceeds 250 mg/dl Ordering Provider: ISELA BOLDEN MY Report Released Date/Time: Aug 03, 2022 08:49 AM Reporting Lab: [place] [facility] [address] [place] [address] Performing Lab: [place] [facility] [address] [place] [address] [facility] CHOLESTERO L PANEL (PB) CHOLESTEROL IN HDL/CHOLEST LYNDA.TOTAL [MASS RATIO] IN SERUM OR PLASMA 20.2 25 01/24 Specimen Type: PLASMA Comment: LDL calculation invalid when Triglyceride exceeds 250 mg/dl Ordering Provider: ISELA BOLDEN MY Report Released Date/Time: Aug 03, 2022 08:49 AM Reporting Lab: [place] [facility] [address] [place] [address] Performing Lab: [place] [facility] [address] [place] [address] [facility] CHOLESTERO L PANEL (PB) CHOLESTEROL IN LDL [MASS/VOLUM E] IN SERUM OR PLASMA BY DIRECT ASSAY 62.3 mg/dL 0 - 99.9 01/24 Specimen Type: PLASMA Comment: LDL calculation invalid when Triglyceride exceeds 250 mg/dl Ordering Provider: ISELA BOLDEN MY Report Released Date/Time: Aug 03, 2022 08:49 AM Reporting Lab: [place] [facility] [address] [place] [address] Performing Lab: [place] [facility] [address] [place] [address] [facility] Vital Signs Combined list of inpatient and outpatient Vital Signs from Department of Defense and Veterans Affairs, ranging from 12 months to all on record, depending upon the facility. Vital Sign Value Date Comments Source SYSTOLIC BLOOD PRESSURE 144 04/08/2024 13:18:34 [facility] DIASTOLIC BLOOD PRESSURE 68 04/08/2024 13:18:34 [facility] PULSE OXIMETRY 97 04/08/2024 13:18:34 [facility] WEIGHT 199.7 04/08/2024 13:18:34 [facility] BMI 32 kg/m2 04/08/2024 13:18:34 [facility] PAIN 0 04/08/2024 13:18:34 [facility] TEMPERATURE 98.2 04/08/2024 13:18:34 [facility] PULSE 60 04/08/2024 13:18:34 [facility] RESPIRATION 20 04/08/2024 13:18:34 [facility] Encounters Combined list of: 1) Encounters from [facility] of [facility] facilities going backup to the last 18 months, not all [place] inpatient encounters are included; 2) Encounters from the Department of Defense facilities going backup to 280 months. Location Location Details Encounter Type Encounter Number Reason For Visit Attending Provider ADM Date DC Date Status Disposition Source [facility] Outpatient Encounter [id number] 04/12 [facility] Outpatient Encounter [id number] 04/18 [facility] En[facility] [id number] 04/24 [facility] Outpatient Encounter [id number] 05/09 [facility] Outpatient Encounter [id number] Diagnos is: ICD-10- CM Z03.89 Encntr for obs for oth suspect ed disease s and cond ruled out Magui LEIGH 05/16 [place] [facility] Outpatient Encounter [id number] 06/12 [facility] Outpatient Encounter [id number] 07/09 [facility] Outpatient Encounter [id number] Diagnos is: ICD-10- CM I10 Essenti al (primar y) hyperte nsion Magui LEIGH 07/13 [place] [facility] Outpatient Encounter [id number] 07/16 [facility] [place] [facility] PRO PHONE CALL 5-10 MIN [id number] Diagnos is: ICD-10- CM E11.9 Type 2 diabete s mellitu s without complic ations Magui LEIGH 07/17 [place] [facility] OFFICE O/P EST MOD 30 MIN [id number] Diagnos is: ICD-10- CM E11.9 Type 2 diabete s mellitu s without complic ations Cinthya BOLDEN 07/24 [facility] Outpatient Encounter [id number] 07/28 [facility] Outpatient Encounter [id number] 08/03 [facility] Outpatient Encounter [id number] 08/07 [facility] Outpatient Encounter [id number] 08/08 [facility] PRO PHONE CALL 5-10 MIN [id number] Diagnos is: ICD-10- CM E11.9 Type 2 diabete s mellitu s without complic ations Magui LEIGH 08/10 [place] [facility] [place] [facility] PRO PHONE CALL 5-10 MIN [id number] Diagnos is: ICD-10- CM I10 Essenti al (primar y) hyperte nsMagui Vergara 08/13 [place] [facility] [place] [facility] Outpatient Encounter [id number] Diagnos is: ICD-10- CM I10 Essenti al (primar y) hyperte nsMagui Vergara D 08/14 [facility] [facility] En[facility] [id number] 08/14 [facility] En[facility] [id number] 09/11 [facility] Encounter [id number] 09/12 [facility] Encounter [id number] 09/22 [facility] Out[facility] Encounter [id number] 09/24 [facility] Encounter [id number] 09/26 [facility] Encounter [id number] 09/27 [facility] Out[facility] Encounter [id number] 10/01 [facility] Out[facility] Encounter [id number] 10/01 [facility] Out[facility] Encounter [id number] 10/08 [facility] Out[facility] Encounter [id number] 10/08 [facility] [place] [facility] Outpatient Encounter [id number] SANDEEPVANESA THOMPSON S 10/15 [place] [facility] Outpatient Encounter [id number] 10/19 [facility] Outpatient Encounter [id number] 11/12 [facility] [place] [facility] Outpatient Encounter [id number] Diagnos is: ICD-10- CM I10 Essenti al (primar y) hyperte nsMagui Vergara 11/13 [facility] PRO PHONE CALL 5-10 MIN [id number] Diagnos is: ICD-10- CM E11.9 Type 2 diabete s mellitu s without complic atMagui Valdes 11/13 [facility] Outpatient Encounter [id number] 12/07 [facility] Encounter [id number] 01/18 [facility] Outpatient Encounter [id number] 02/04 [facility] Encounter [id number] 02/06 [facility] PRO PHONE CALL 5-10 MIN [id number] Diagnos is: ICD-10- CM E11.9 Type 2 diabete s mellitu s without complic ations Magui LEIGH 02/12 [facility] Outpatient Encounter [id number] 02/18 [facility] Outpatient Encounter [id number] 02/20 [facility] Outpatient Encounter [id number] 02/27 [facility] Outpatient Encounter [id number] 02/28 [facility] Outpatient Encounter [id number] 03/07 [facility] Outpatient Encounter [id number] 03/11 [facility] Outpatient Encounter [id number] Diagnos is: ICD-10- CM I10 Essenti al (primar y) hyperte nsion Magui LEIGH 03/11 [facility] Outpatient Encounter [id number] 03/25 [facility] FEE [id number] Diagnos is: ICD-10- CM E11.9 Type 2 diabete s mellitu s without complic ations Samy GOMEZ 04/08 [facility] [place] [facility] O/P EST LOW 20 MIN [id number] Diagnos is: ICD-10- CM E11.9 Type 2 diabete s mellitu s without complic ations KHADRASamy MEADOWSAri Nolasco 04/08 [facility] [place] [facility] Outpatient Encounter [id number] Diagnos is: ICD-10- CM I10 Essenti al (primar y) hyperte jeet LEIGHMagui ESLIE D 04/12 [place] [facility] [place] [address] ASSMT&MGMT NQHP 5-10 [id number] Diagnos is: ICD-10- CM I10 Essenti al (primar y) hypertmyles marcano Magui LEIGH ESLIE D 04/22 [place] [facility] Outpatient Encounter [id number] TANVIR MUHAMMAD 05/08 [facility] [place] [address] ASSMT&MGMT NQHP 5-10 [id number] Diagnos is: ICD-10- CM E11.9 Type 2 diabete s mellitu s without complic ations LUMagui ESLIE D 05/13 [place] [facility] [place] [facility] Outpatient Encounter [id number] Diagnos is: ICD-10- CM I10 Essenti al (primar y) hyperte jeet LEIGHMagui ESLIE D 05/17 [place] [facility] [place] [facility] PH1 ASSMT&MGMT NQHP 5-10 [id number] Diagnos is: ICD-10- CM E11.9 Type 2 diabete s mellitu s without complic ations LUMagui ESLIE D 05/22 [place] [facility] [place] [facility] Outpatient Encounter [id number] Diagnos is: ICD-10- CM I10 Essenti al (primar y) hyperte jeet LUL ESLIE D 06/14 [place] [facility] Outpatient Encounter [id number] 06/26 [facility] Outpatient Encounter [id number] 06/27 [facility] [place] [facility] Outpatient Encounter [id number] Diagnos is: ICD-10- CM I10 Essenti al (primar y) LORENA Pickett 07/15 [place] [facility] Outpatient Encounter [id number] 08/06 [facility] Outpatient Encounter [id number] 08/12 [facility] [place] [facility] Outpatient Encounter [id number] Diagnos is: ICD-10- CM I10 Essenti al (primar y) Magui Mccartney ESLIE D 08/14 [place] [facility] [place] [facility] PH1 ASSMT&MGMT NQHP 11-20 [id number] Diagnos is: ICD-10- CM E11.9 Type 2 diabete s mellitu s without complic atMagui Valdes ESLIE D 08/14 [place] [facility] [place] [facility] PH1 ASSMT&MGMT NQHP 5-10 [id number] Diagnos is: ICD-10- CM I10 Essenti al (primar y) Magui Mccartney ESLIE D 08/19 [place] [facility] Outpatient Encounter [id number] 09/02 [facility] [place] [facility] Outpatient Encounter [id number] Diagnos is: ICD-10- CM I10 Essenti al (primar y) hyperte nsviri Magui LEIGH 09/04 [place] [facility] Outpatient Encounter [id number] 09/06 [facility] Outpatient Encounter [id number] 09/10 [facility] Outpatient Encounter [id number] 09/30 [facility] PH1 ASSMT&MGMT NQHP 5-10 [id number] Diagnos is: ICD-10- CM 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 Social History Type Response Date Comment Sourc e Tobacco smoking status [place] VA-TO[facility]ACCO NEVER USED 01/25/2023 [facility] History of tobacco use VA-TOBACCO NEVER USED 01/27/2022 [facility] History of tobacco use VA-TOBACCO NEVER USED 08/13/2020 [facility] History of tobacco use VA-TOBACCO NEVER USED 06/05/2019 [facility] History of tobacco use LIFETIME NON-USER OF TOBACCO 07/16/2015 [facility] Plan of Care List of future care activities from [facility] of [facility] facilities. Additional future care activities may be listed in the Assessment and Plan section. Date/Time Care Activity Care Activity Detail Facili ty 10/21/2024 AMBULATORY - MEDICINE [facility]
[2024-10-11 10:48] VITALS: BP 157/92; PULSE 66; RESP 18; TEMP 36.8; O2SAT 96; BMI 32.3
--- NOTE | 2024-10-11 10:57 | W.ED.WOUNDLC ---
HPI - Wound/Laceration General: Chief Complaint: Wound/Laceration Stated Complaint: fell on sheet metal and got deep laceration Time Seen by Provider: 10/11/24 10:57 Source: patient Mode of arrival: ambulatory Limitations: no limitations History of Present Illness: Patient is a nice 68-year-old male presents to ED today for evaluation of a laceration to his right forearm that he sustained just prior to arrival after cutting it on sheet-metal. Last tetanus is unknown. Onset (ago): hour(s) Extremity Location: Right: forearm Place: home Patient tetanus UTD: No Context: accidental Associated symptoms: Reports no associated symptoms Treatments prior to arrival: bandage Related Data Home Medications ?Medication ?Instructions ?Recorded ?Confirmed losartan 50 mg tablet 50 mg PO DAILY 06/24/19 05/06/24 cholecalciferol (vitamin D3) 325 1,000 unit PO DAILY 10/20/20 05/06/24 mcg (13,000 unit) capsule (Maximum D3) gabapentin 100 mg capsule 100 mg PO TID 10/20/20 05/06/24 metformin 500 mg tablet 500 mg PO BID 10/20/20 05/06/24 trazodone 50 mg tablet 50 mg PO DAILY 10/20/20 05/06/24 oxybutynin chloride 5 mg tablet 5 mg PO DAILY 08/12/22 05/06/24 glipizide 10 mg tablet 10 mg PO BID 05/06/24 05/06/24 rosuvastatin 40 mg tablet 40 mg PO QPM 05/06/24 05/06/24 Previous Rx's ?Medication ?Instructions ?Recorded diclofenac sodium 75 mg 75 mg PO Q12H PRN pain #20 tabs 05/06/24 tablet,delayed release tizanidine 4 mg tablet 4 mg PO Q6H PRN muscle spasticity 05/06/24 #20 tabs Allergies Allergy/AdvReac Type Severity Reaction Status Date / Time codeine Allergy Mild rash Verified 09/13/22 11:24 Review of Systems Musc: Denies: extremity swelling, joint pain or joint swelling Skin/Breast: Reports: other (laceration R forearm) Neuro: Denies: numbness in extremities, weakness in extremities or sensory changes PFSH ED PFSH: Medical History Type 2 diabetes mellitus History of high blood pressure Epilepsy Surgical History S/P rotator cuff repair H/O removal of cyst Family History Father Family history of premature coronary artery disease Social History Smoking and tobacco/nicotine status: never used tobacco/nicotine Alcohol intake: never Substance/Drug Use: never Physical Exam Const: COMMON NORMALS: no acute distress, average body habitus, patient oriented x3, no limitations, healthy appearing, alert and well nourished Extremity: COMMON NORMALS: capillary refill normal GENERAL: Yes normal exam except as noted RIGHT UPPER EXTREMITY: Yes lower arm (flap laceration) Right lower arm: Yes neurovascular exam (normal) Neuro: COMMON NORMALS: patient oriented x3, moves all extremities, no focal motor deficits and no sensory deficits noted SENSORIUM/ORIENTATION: Yes alert Skin: TRAUMA: laceration Procedures Laceration Laceration 1: Site: upper extremity Side (If applicable): right Size (cm): 3.0 Description: flap Depth: simple, single layer Local Anesthetic: lidocaine 2% Amount of anesthesia used (mL): 4.0 Pre-repair: wound explored and irrigated extensively Skin layer closed with: nylon Size (cm): 4-0 Number of sutures: 7 Technique: simple, interrupted Course Vital Signs: Vital signs: Vital Signs Temperature 98.3 F 10/11/24 10:48 Pulse Rate 66 10/11/24 10:48 Respiratory Rate 18 10/11/24 10:48 Blood Pressure 157/92 10/11/24 10:48 Pulse Oximetry 96 10/11/24 10:48 Oxygen Delivery Me thod Room Air 10/11/24 10:48 MDM - Wound/Laceration Medical Decision Making Wound was copiously irrigated and repaired as documented. Tetanus will be updated. Wound care/infection precautions discussed. Differential Diagnosis Likely laceration Medical Records I reviewed the patient's medical records. No radiology studies performed this visit Discharge Plan Discharge Patient Disposition: Home Clinical Impression: Laceration of forearm, right Qualifiers: Encounter type: initial encounter Qualified Code(s): S51.811A - Laceration without foreign body of right forearm, initial encounter Condition: Stable Prescriptions: No Action losartan 50 mg tablet 50 mg PO DAILY metformin 500 mg tablet 500 mg PO BID trazodone 50 mg tablet 50 mg PO DAILY gabapentin 100 mg capsule 100 mg PO TID Maximum D3 325 mcg (13,000 unit) capsule 1,000 unit PO DAILY oxybutynin chloride 5 mg tablet 5 mg PO DAILY glipizide 10 mg Tablet 10 mg PO BID rosuvastatin 40 mg Tablet 40 mg PO QPM tizanidine 4 mg tablet 4 mg PO Q6H PRN (Reason: muscle spasticity) Qty: 20 0RF Rx Instructions: do not exceed 3 doses per 24 hrs diclofenac sodium 75 mg tablet,delayed release (DR/EC) 75 mg PO Q12H PRN (Reason: pain) Qty: 20 0RF Discharge Orders: Discharge ED (Routine); Ordered 10/11/24 Ordered By: Lorraine Connors Referrals: Celine Trammell MD [Primary Care Provider, Family Practice] Patient Instructions: Laceration (DC), Patient Portal & Anila Instructions Activity Restrictions/Additional Instructions: Keep wound/laceration clean with warm soap and water twice daily. Monitor for signs of infection such as redness, swelling, increased pain, or drainage. Please seek medical re-evaluation if these occur. If you received sutures today these will need to be removed (unless you were told by the provider that they are absorbable). The provider should have discussed with you the length of time until removal-7 DAYS. Print Language: Pakistani Coding Level of Care Code ED [employer] for Fili Dorsey
[2024-10-11] MEDS: tetanus-dipt-pertussis 0.5 mL SDV IM (11:04)
--- OUTSIDE RECORDS SUMMARY | 2024-10-11 11:11 | XMS_ITS | Clinical Summary ---
Author Organization [employer] Address 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 Gender Identity Not on file Sexual Orientation Not on file Plan of Treatment Health Maintenance Due Date Last Done Comments DTAP/TDAP/TD VACCINES (1 - Tdap) 1973 COLORECTAL SCREENING 11/19/1999 Colorectal Cancer Screening 11/19/1999 FIT-DNA Q 3 years 11/19/1999 FIT/FOBT Q 1 year 11/19/1999 Flex Sig/CT Colonography Q 5 years 11/19/1999 PNEUMOCOCCAL VACCINE 50+ YEARS (1 of 1 - PCV) 11/19/19 05 ZOSTER VACCINE (1 of 2) 2004 INFLUENZA VACCINE (#1) 2023 RSV VACCINE (60+ or ) (1 - 1-dose 75+ series) 2029 Care Teams Addresser Relationship Specialty Start Date End Date Conversion, History NO ADDRESS ON FILE PCP - General 09/21/08
== END 2024-10-11 11:25 | disposition home or self-care (01) ==
PROVIDERS: Emergency Provider Physician Assistant; PCP Family Medicine
DX: S51.811A Laceration without foreign body of right forearm, initial encounter (principal); Z79.84 Long term (current) use of oral hypoglycemic drugs; E11.9 Type 2 diabetes mellitus without complications; W26.8XXA Contact with other sharp object(s), not elsewhere classified, initial encounter
CPT/HCPCS: 12002; 90471; 90715; 99283; 99291

== ENCOUNTER → 2025-01-22 11:40 | Outpatient (BNVA) | payer MEDICARE, SELFPAY | PROVIDERS: PCP Family Medicine; Visit Provider Internal Medicine Cardiovascular Disease | DX: Z45.09 Encounter for adjustment and management of other cardiac device (principal) | CPT/HCPCS: 93298 ==